=== PATIENT | female | born 1985 | race American Indian/Alaskan Native ===

== ENCOUNTER 2016-07-11 23:39 | Emergency (ER) | payer SELFPAY ==
[2016-07-12 00:12] LABS: Basophils % (Auto) 0.2 % (0.0-1.8); Eosinophils % (Auto) 1.2 % (0.0-4.3); Hematocrit 37.4 % (30.3-42.9); Hemoglobin 12.3 gm/dl (10.1-14.3); Mean Corpuscular HGB Conc 33 % (30-34); Mean Corpuscular Hemoglobin 29 pg (28-32); Mean Corpuscular Volume 89 fl (79-97); Platelet Count 200 K/mm3 (140-440); Red Blood Count 4.19 M/mm3 (3.65-5.03); Red Cell Distribution Width 13.3 % (13.2-15.2); White Blood Count 5.6 K/mm3 (4.5-11.0)
[2016-07-12 01:14] LABS: Anion Gap 19 mmol/L; Blood Urea Nitrogen 15 mg/dL (7-17); Calcium 8.6 mg/dL (8.4-10.2); Carbon Dioxide 24 mmol/L (22-30); Chloride 102.8 mmol/L (98-107); Glucose 94 mg/dL (65-100); Potassium 3.5 mmol/L (3.6-5.0); Sodium 142 mmol/L (137-145)
--- NOTE | 2016-07-12 08:47 | Emergency Department Report ---
HPI - General Chief Complaint: High BP Time Seen by Provider: 07/12/16 08:35 - HPI HPI: Chief complaint: Upper respiratory infection HPI: Patient is a 31-year-old female with a history of hypertension he's been out of her blood pressure medicines for 2 weeks. Patient is here today not because of her blood pressure but because she has been sick for the last week with a productive cough with yellow sputum. Patient states she's had fever for a couple of days and had some nausea and vomiting and lightheadedness early on. Patient denies any chest pain. Mode of arrival: [private car] Source: [Patient] Began: See above Duration: One week Context: See above Quality: Pain-free Severity: 0 out of 10 Improved with: Nothing Worsened with: Nothing Associated signs and symptoms: See above ED Past Medical Hx - Past Medical History Previous Medical History?: Yes Hx Hypertension: Yes (treated with HCTZ until found out she was ) Additional medical history: ectopic hx. - Surgical History Past Surgical History?: Yes Additional Surgical History: 2 csec. - Social History Smoking Status: Never Smoker Substance Use Type: None - Medications Home Medications: Home Medications Medication Instructions Recorded Confirmed Last Taken Type Azithromycin [Zithromax TAB] 500 mg PO QDAY #3 tablet 07/12/16 Unknown Rx Fluticasone [Flonase] 1 spray NS QDAY #1 bottle 07/12/16 Unknown Rx Hydrochlorothiazide [HCTZ] 12.5 mg PO QDAY #30 capsule 07/12/16 Unknown Rx Lisinopril [Zestril TAB] 20 mg PO QDAY #30 tablet 07/12/16 Unknown Rx hydrALAZINE [Apresoline TAB] 25 mg PO BID #60 tablet 07/12/16 Unknown Rx methylPREDNISolone [Medrol] 4 mg PO QAM #1 tab.ds.pk 07/12/16 Unknown Rx ED Review of Systems ROS: Stated complaint: FLU SX Other details as noted in HPI ROS Constitutional: No fever ENT: No uri symptoms Cardiovascular: No chest pain Respiratory: No sob GI: See HPI : No dysuria frequency or urgency, Skin: No rash Neuro: No focal weakness or numbness Psych: No depression Handy/lymph: No edema Physical Exam - Physical Exam Vital Signs: Vital Signs 07/11/16 07/11/16 07/12/16 23:45 23:49 05:00 Temperature 98.2 F 98.2 F Pulse Rate 81 81 81 Respiratory 18 18 18 Rate Blood Pressure 195/133 190/130 Blood Pressure 195/133 [Right] O2 Sat by Pulse 100 100 100 Oximetry 07/12/16 07/12/16 07/12/16 07:33 07:40 08:02 Temperature Pulse Rate 80 Respiratory 10 L 18 Rate Blood Pressure 182/107 182/107 Blood Pressure [Right] O2 Sat by Pulse 99 98 Oximetry 07/12/16 08:04 Temperature 98.7 F Pulse Rate Respiratory 18 Rate Blood Pressure Blood Pressure [Right] O2 Sat by Pulse Oximetry Physical Exam: GENERAL: The patient is an obese -[place] female no acute distress. HEENT: Normocephalic. Atraumatic. Extraocular motions are intact. Patient has moist mucous membranes. NECK: Supple. No meningitic signs are noted. There is no adenopathy noted. CHEST/LUNGS: Clear to auscultation. There is no respiratory distress noted. HEART/CARDIOVASCULAR: Regular. There is no tachycardia. There is no gallop rub or murmur. ABDOMEN: Abdomen is soft, nontender. Patient has normal bowel sounds. There is no abdominal distention. SKIN: There is no rash. There is no edema. There is no diaphoresis. NEURO: The patient is awake, alert, and oriented. The patient is cooperative. The patient has no focal neurologic deficits. The patient has normal speech. MUSCULOSKELETAL: There is no tenderness or deformity. There is no limitation range of motion. There is no evidence of acute injury. ED Course Vital Signs 07/11/16 07/11/16 07/12/16 23:45 23:49 05:00 Temperature 98.2 F 98.2 F Pulse Rate 81 81 81 Respiratory 18 18 18 Rate Blood Pressure 195/133 190/130 Blood Pressure 195/133 [Right] O2 Sat by Pulse 100 100 100 Oximetry 07/12/16 07/12/16 07/12/16 07:33 07:40 08:02 Temperature Pulse Rate 80 Respiratory 10 L 18 Rate Blood Pressure 182/107 182/107 Blood Pressure [Right] O2 Sat by Pulse 99 98 Oximetry 07/12/16 08:04 Temperature 98.7 F Pulse Rate Respiratory 18 Rate Blood Pressure Blood Pressure [Right] O2 Sat by Pulse Oximetry ED Medical Decision Making - Lab Data Result diagrams: 07/12/16 00:03 07/12/16 00:03 Critical care attestation.: If time is entered above; I have spent that time in minutes in the direct care of this critically ill patient, excluding procedure time. ED Disposition Clinical Impression: Bronchitis, Essential hypertension Disposition: DISCHARGED TO HOME OR SELFCARE Is pt being admited?: No Does the pt Need Aspirin: No Condition: Stable Instructions: Acute Bronchitis (ED), Hypertension (ED) Prescriptions: Azithromycin [Zithromax TAB] 500 mg PO QDAY #3 tablet Fluticasone [Flonase] 1 spray NS QDAY #1 bottle hydrALAZINE [Apresoline TAB] 25 mg PO BID #60 tablet Hydrochlorothiazide [HCTZ] 12.5 mg PO QDAY #30 capsule Lisinopril [Zestril TAB] 20 mg PO QDAY #30 tablet methylPREDNISolone [Medrol] 4 mg PO QAM #1 tab.ds.pk Referrals: PRIMARY CARE, [Primary Care Provider] - 7-10 days Forms: Work/School Release Form(ED) Time of Disposition: 08:43
[2016-07-12 09:23] VITALS: BP 154/91
== END 2016-07-12 09:23 | disposition home or self-care (01) ==
LOC: ED 23:39
DX: J40 Bronchitis, not specified as acute or chronic (principal); I10 Essential (primary) hypertension
CPT/HCPCS: 36415; 80048; 85025; 99283

== ENCOUNTER 2017-01-03 19:16 | Emergency (ER) | payer MEDICAID ==
[2017-01-03] MEDS ORDERED: CATAPRES PO ONE (20:14)
[2017-01-03 20:40] LABS: Basophils % (Auto) 0.4 % (0.0-1.8); Eosinophils % (Auto) 1.6 % (0.0-4.3); Hematocrit 38.1 % (30.3-42.9); Hemoglobin 12.4 gm/dl (10.1-14.3); Mean Corpuscular HGB Conc 32 % (30-34); Mean Corpuscular Hemoglobin 29 pg (28-32); Mean Corpuscular Volume 90 fl (79-97); Platelet Count 220 K/mm3 (140-440); Red Blood Count 4.23 M/mm3 (3.65-5.03); Red Cell Distribution Width 13.8 % (13.2-15.2); White Blood Count 4.9 K/mm3 (4.5-11.0)
[2017-01-03 20:51] LABS: Anion Gap 19 mmol/L; Blood Urea Nitrogen 10 mg/dL (7-17); Calcium 9.1 mg/dL (8.4-10.2); Carbon Dioxide 21 mmol/L (22-30); Chloride 103.5 mmol/L (98-107); Creatine Kinase 353 units/L (30-135); Glucose 108 mg/dL (65-100); Potassium 3.1 mmol/L (3.6-5.0); Sodium 140 mmol/L (137-145)
--- NOTE | 2017-01-03 21:48 | Cat Scan Report ---
FINAL REPORT EXAM: CT HEAD/BRAIN WO CON HISTORY: HEADACHE TECHNIQUE: CT was performed from the foramen magnum through the vertex in the axial plane without the use of intravenous contrast. PRIORS: 03/26/2015 FINDINGS: The almonte/white matter attenuation pattern is normal. There is no mass lesion or mass effect. There are no abnormal extra-axial fluid collections. There is no evidence of acute intracranial hemorrhage or infarct. The ventricles are of normal size and configuration. The skull and orbits are unremarkable. The visualized paranasal sinuses are clear. IMPRESSION: Normal CT of the head.
[2017-01-04] MEDS ORDERED: REGLAN IV ONE (01:07)
[2017-01-04] MEDS ORDERED: BENADRYL IV ONE (01:07)
[2017-01-04] MEDS ORDERED: NACL 0.9% 1000 ML 1,000 ML IV ONE (01:07)
[2017-01-04] MEDS ORDERED: TORADOL IV ONE (01:07)
[2017-01-04] MEDS ORDERED: K-DUR PO ONE (01:08)
--- NOTE | 2017-01-04 01:33 | Emergency Department Report ---
ED Headache HPI - General Chief Complaint: High BP Stated Complaint: HBP/COREAS/VOMITING Time Seen by Provider: 01/04/17 01:00 Source: patient Exam Limitations: no limitations - History of Present Illness Initial Comments: 31-year-old female with a past medical history hypertension and migraines presents to Hospital complaints of headache and elevated blood pressure since this morning. Headache is in the right side starting behind the eye, sharp, constant, and severe. No aggravating or alleviating factors reported. She has a history of migraines reports that this headache is similar. No reports of blurred vision or photophobia. Patient had lightheadedness and vomiting throughout the day. She knows her blood pressure was elevated at 200/118 at home. Her typical blood pressures in the 150s/ 80s. Patient has been compliant with her blood pressure medication which she has been taken 1 month. Allergies/Adverse Reactions: Allergies No Known Allergies Allergy (Unverified 03/03/13 22:09) Home Medications: Ambulatory Orders Butalb/Acetamin/Caff 50-325-40 [Fioricet] 1 tab PO Q6HR PRN #20 tab 01/04/17 HYDROcodone/APAP 5-325 [[place] 5/325] 1 each PO Q6HR PRN #20 tablet 01/04/17 Ondansetron [Zofran Odt] 4 mg PO Q8HR PRN #20 tab.rapdis 01/04/17 Potassium Chloride [K-Dur] 20 meq PO BID #6 tab 01/04/17 Valsartan/Hydrochlorothiazide [Valsartan-Hctz 160-12.5 mg Tab] 1 each PO DAILY 01/04/17 ED Review of Systems ROS: Stated complaint: HBP/COREAS/VOMITING Other details as noted in HPI Comment: All other systems reviewed and negative Other: Constitutional: No fevers chills Eyes: No eye pain visual changes ENT: No ear pain or throat pain Neck: Denies pain Respiratory: Denies cough wheezing shortness of breath Cardiovascular: Denies chest pain, palpitations, syncope GI: Denies abdominal pain, nausea, vomiting, diarrhea : Denies dysuria Musculoskeletal: Denies back pain, joint swelling Skin: Denies rash, lesions, erythema Neurologic: Per HPI Psychiatric: Denies suicidal ideation, hallucinations ED Past Medical Hx - Past Medical History Previous Medical History?: Yes Hx Hypertension: Yes (treated with HCTZ until found out she was ) Hx Congestive Heart Failure: No Hx Diabetes: No Hx Deep Vein Thrombosis: No Hx Renal Disease: No Hx Sickle Cell Disease: No Hx Headaches / Migraines: Yes (migraines) Hx Seizures: No Hx Asthma: No Hx COPD: No Additional medical history: ectopic hx. - Surgical History Past Surgical History?: Yes Additional Surgical History: 2 csec. - Social History Smoking Status: Never Smoker Substance Use Type: Alcohol - Medications Home Medications: Home Medications Medication Instructions Recorded Confirmed Last Taken Type Butalb/Acetamin/Caff 50-325-40 1 tab PO Q6HR PRN #20 tab 01/04/17 Unknown Rx [Fioricet] HYDROcodone/APAP 5-325 [[place] 1 each PO Q6HR PRN #20 tablet 01/04/17 Unknown Rx 5/325] Ondansetron [Zofran Odt] 4 mg PO Q8HR PRN #20 tab.rapdis 01/04/17 Unknown Rx Potassium Chloride [K-Dur] 20 meq PO BID #6 tab 01/04/17 Unknown Rx Valsartan/Hydrochlorothiazide 1 each PO DAILY 01/04/17 01/04/17 Unknown History [Valsartan-Hctz 160-12.5 mg Tab] ED Physical Exam - General Limitations: No Limitations - Other Other exam information: General: No limitations, patient is alert in no acute distress Head exam: Atraumatic, normocephalic Eyes exam: Normal appearance, pupils equal reactive to light, extraocular movements intact ENT: Moist mucous membrane, normal oropharynx Neck exam: Normal inspection, full range of motion, no meningismus nontender Respiratory exam: Clear to auscultation bilateral, no wheezes, rales, crackles Cardiovascular: Normal rate and rhythm, normal heart sounds Abdomen: Soft, nondistended, and nontender, with normal bowel sounds, no rebound, or guarding Extremity: Full range of motion normal inspection no deformity Back: Normal Inspection, full range of motion, no tenderness Neurologic: Alert, oriented x3, cranial nerves intact, no motor or sensory deficit Psychiatric: normal affect, normal mood Skin: Warm, dry, intact ED Course Vital Signs 01/03/17 01/03/17 01/03/17 20:01 20:18 22:18 Temperature 98.7 F Pulse Rate 87 72 Respiratory 20 Rate Blood Pressure 189/122 189/122 197/120 Blood Pressure [Left] O2 Sat by Pulse 100 96 Oximetry 01/03/17 01/04/17 01/04/17 23: 00:10 00:12 Temperature 98.1 F Pulse Rate 86 88 Respiratory 19 20 Rate Blood Pressure 178/115 154/93 Blood Pressure 154/93 [Left] O2 Sat by Pulse 96 98 Oximetry 01/04/17 01/04/17 01/04/17 00:30 00:31 01:00 Temperature Pulse Rate 84 79 Respiratory 20 20 12 Rate Blood Pressure 129/101 159/96 Blood Pressure [Left] O2 Sat by Pulse 99 98 100 Oximetry 01/04/17 01/04/17 01/04/17 01:30 01:32 02:00 Temperature Pulse Rate 95 H 80 Respiratory 17 16 21 Rate Blood Pressure 175/100 162/96 Blood Pressure [Left] O2 Sat by Pulse 97 97 Oximetry 01/04/17 02:30 Temperature Pulse Rate 65 Respiratory 17 Rate Blood Pressure 141/89 Blood Pressure [Left] O2 Sat by Pulse 98 Oximetry - Reevaluation(s) Reevaluation #1: 01/04/17 02:47 headache improved with normal saline, Reglan, Benadryl, and Toradol. By mouth potassium provided well patient tolerated by mouth ED Medical Decision Making - Lab Data Result diagrams: 01/03/17 20:20 01/03/17 20:20 Lab Results 01/03/17 01/03/17 01/03/17 Range/Units 20:20 20:20 20:20 WBC 4.9 (4.5-11.0) K/mm3 RBC 4.23 (3.65-5.03) M/mm3 Hgb 12.4 (10.1-14.3) gm/dl Hct 38.1 (30.3-42.9) % MCV 90 (79-97) fl MCH 29 (28-32) pg MCHC 32 (30-34) % RDW 13.8 (13.2-15.2) % Plt Count 220 (140-440) K/mm3 Lymph % (Auto) 27.5 (13.4-35.0) % [place] % (Auto) 8.7 H (0.0-7.3) % Eos % (Auto) 1.6 (0.0-4.3) % Baso % (Auto) 0.4 (0.0-1.8) % Lymph # 1.3 (1.2-5.4) K/mm3 [place] # 0.4 (0.0-0.8) K/mm3 Eos # 0.1 (0.0-0.4) K/mm3 Baso # 0.0 (0.0-0.1) K/mm3 Seg Neutrophils % 61.8 (40.0-70.0) % Seg Neutrophils # 3.0 (1.8-7.7) K/mm3 Sodium 140 (137-145) mmol/L Potassium 3.1 L (3.6-5.0) mmol/L Chloride 103.5 (98-107) mmol/L Carbon Dioxide 21 L (22-30) mmol/L Anion Gap 19 mmol/L BUN 10 (7-17) mg/dL Creatinine 0.8 (0.7-1.2) mg/dL Estimated GFR > 60 ml/min BUN/Creatinine Ratio 12.50 % Glucose 108 H (65-100) mg/dL Calcium 9.1 (8.4-10.2) mg/dL Magnesium (1.7-2.3) mg/dL Total Bilirubin (0.1-1.2) mg/dL Direct Bilirubin (0-0.2) mg/dL Indirect Bilirubin mg/dL AST (5-40) units/L ALT (7-56) units/L Alkaline Phosphatase (35-129) units/L Total Creatine Kinase 353 H (30-135) units/L Troponin T < 0.010 (0.00-0.029) ng/mL Total Protein (6.3-8.2) g/dL Albumin (3.9-5) g/dL Albumin/Globulin Ratio % Lipase (13-60) units/L HCG, Qual Negative (Negative) 01/04/17 01/04/17 Range/Units 01:05 01:05 WBC (4.5-11.0) K/mm3 RBC (3.65-5.03) M/mm3 Hgb (10.1-14.3) gm/dl Hct (30.3-42.9) % MCV (79-97) fl MCH (28-32) pg MCHC (30-34) % RDW (13.2-15.2) % Plt Count (140-440) K/mm3 Lymph % (Auto) (13.4-35.0) % [place] % (Auto) (0.0-7.3) % Eos % (Auto) (0.0-4.3) % Baso % (Auto) (0.0-1.8) % Lymph # (1.2-5.4) K/mm3 [place] # (0.0-0.8) K/mm3 Eos # (0.0-0.4) K/mm3 Baso # (0.0-0.1) K/mm3 Seg Neutrophils % (40.0-70.0) % Seg Neutrophils # (1.8-7.7) K/mm3 Sodium (137-145) mmol/L Potassium (3.6-5.0) mmol/L Chloride (98-107) mmol/L Carbon Dioxide (22-30) mmol/L Anion Gap mmol/L BUN (7-17) mg/dL Creatinine (0.7-1.2) mg/dL Estimated GFR ml/min BUN/Creatinine Ratio % Glucose (65-100) mg/dL Calcium (8.4-10.2) mg/dL Magnesium 2.10 (1.7-2.3) mg/dL Total Bilirubin 0.30 (0.1-1.2) mg/dL Direct Bilirubin < 0.2 (0-0.2) mg/dL Indirect Bilirubin 0.1 mg/dL AST 14 (5-40) units/L ALT 16 (7-56) units/L Alkaline Phosphatase 58 (35-129) units/L Total Creatine Kinase (30-135) units/L Troponin T (0.00-0.029) ng/mL Total Protein 7.5 (6.3-8.2) g/dL Albumin 4.3 (3.9-5) g/dL Albumin/Globulin Ratio 1.3 % Lipase 23 (13-60) units/L HCG, Qual (Negative) - EKG Data -: EKG Interpreted by Me (sinus rhythm rate 81 LVH prolonged QT) - EKG Data When compared to previous EKG there are: no significant change (compared to (QT longer today)) - Medical Decision Making Patient feels much better after ED treatment. We'll discharge home with migraine diagnosis. I suspect that elevated blood pressure could be due to acute pain. Patient will be instructed to continue to monitor her blood pressure and no medication adjustment recommended at this time - Differential Diagnosis migraine, hypertensive emergency, intracranial hemorrhage Critical Care Time: No Critical care attestation.: If time is entered above; I have spent that time in minutes in the direct care of this critically ill patient, excluding procedure time. ED Disposition Clinical Impression: Migraine headache, Uncontrolled hypertension, Hypokalemia, Vomiting Disposition: TO HOME OR SELFCARE Is pt being admited?: No Condition: Stable Instructions: Hypertension (ED), Migraine Headache (ED), Hypokalemia (ED) Additional Instructions: Take the medication as prescribed. Return if symptoms worsen. Continue to monitor your blood pressure Prescriptions: Butalb/Acetamin/Caff 50-325-40 [Fioricet] 1 tab PO Q6HR PRN #20 tab PRN Reason: Headache HYDROcodone/APAP 5-325 [[place] 5/325] 1 each PO Q6HR PRN #20 tablet PRN Reason: Pain Ondansetron [Zofran Odt] 4 mg PO Q8HR PRN #20 tab.rapdis PRN Reason: Nausea And Vomiting Potassium Chloride [K-Dur] 20 meq PO BID #6 tab Referrals: PRIMARY CARE, [Primary Care Provider] - 2-3 Days Time of Disposition: 03:14
[2017-01-04 01:53] LABS: Alanine Aminotransferase 16 units/L (7-56); Albumin 4.3 g/dL (3.9-5); Albumin/Globulin Ratio 1.3 %; Alkaline Phosphatase 58 units/L (35-129); Lipase 23 units/L (13-60); Total Protein 7.5 g/dL (6.3-8.2)
[2017-01-04 01:55] LABS: Bilirubin,Direct < 0.2 mg/dL (0-0.2); Bilirubin,Indirect 0.1 mg/dL
[2017-01-04 03:34] VITALS: BP 155/92
== END 2017-01-04 03:33 | disposition home or self-care (01) ==
LOC: ED 19:16
DX: G43.909 Migraine, unspecified, not intractable, without status migrainosus (principal); I10 Essential (primary) hypertension; E87.6 Hypokalemia; R11.10 Vomiting, unspecified
CPT/HCPCS: 36415; 70450; 80048; 80074; 82550; 83690; 83735; 84484; 84703; 85025; 93005; 93010; 96361; 96374; 96375; 99284; J1200; J1885; J2765; J7030

== ENCOUNTER 2018-03-12 07:20 | Day surgery (SDC) | payer MEDICAID ==
--- NOTE | 2018-03-12 07:30 | Short Stay Summary ---
Short Stay Documentation Date of service: 03/12/18 Narrative H&P: Pt is a 32yo BF EDC 08/24/18; EGA 16 3/ weeks presents for Cervical cerclage due to Incompetent cervix. - History Principal diagnosis: IUP @ 16 3/7 weeks; Incompetent cervix H&P: obtained from office Past Medical History: hypertension Past Surgical History: Social history: no significant social history, single - Allergies and Medications Current Medications: Allergies No Known Allergies Allergy (Unverified 03/03/13 22:09) Home Medications Medication Instructions Recorded Confirmed Last Taken Type Butalb/Acetamin/Caff 50-325-40 1 tab PO Q6HR PRN #20 tab 01/04/17 Unknown Rx [Fioricet] HYDROcodone/APAP 5-325 [[place] 1 each PO Q6HR PRN #20 tablet 01/04/17 Unknown Rx 5/325] Ondansetron [Zofran Odt] 4 mg PO Q8HR PRN #20 tab.rapdis 01/04/17 Unknown Rx Potassium Chloride [K-Dur] 20 meq PO BID #6 tab 01/04/17 Unknown Rx Valsartan/Hydrochlorothiazide 1 each PO DAILY 01/04/17 01/04/17 Unknown History [Valsartan-Hctz 160-12.5 mg Tab] Active Medications Citric Acid/Sodium Citrate (Bicitra) 30 ml PO ONCE ONE Stop: 03/12/18 07:29 Famotidine (Pepcid) 20 mg IV ONCE ONE Stop: 03/12/18 07:29 Cefazolin Sodium (Ancef/Sterile Water 2 Gm/20 Ml) 2 gm in 20 mls @ 80 mls/hr IV PREOP NR; Protocol Lactated Ringer's (Lactated Ringers) 1,000 mls @ 2,250 mls/hr IV PREOP MEREDITH Stop: 03/13/18 08:27 Oxytocin/Sodium Chloride (Pitocin/Ns 20 Unit/1000ml Drip) 20 units in 1,000 mls @ 0 mls/hr IV TITR MEREDITH Metoclopramide HCl (Reglan) 10 mg IV ONCE ONE Stop: 03/12/18 07:29 - Physical exam General appearance: no acute distress Integumentary: no rash HEENT: Atraumatic Lungs: Clear to auscultation Breasts: deferred Heart: Regular rate Gastrointestinal: normal Female Genitourinary: deferred Rectal Exam: deferred Extremities: no ischemia, No edema Neurological: Normal gait, Normal speech - Brief post op/procedure progress note Date of procedure: 03/12/18 Pre-op diagnosis: 1. IUP @ 16 3/7 weeks 2. Incompetent cervix Post-op diagnosis: same Procedure: Cervical cerclage Anesthesia: epidural Findings: A 16 week size uterus with cervix appears to be closed and thick. Surgeon: ONEAL LOPEZ Estimated blood loss: minimal Pathology: none Condition: stable - Hospital course Hospital course: Unremarkable except for elevated BP's - improved with IV Hydralazine and PO Labetolol. - Disposition Condition at discharge: Good Disposition: DC-01 TO HOME OR SELFCARE - Discharge Diagnoses (1) 16 weeks gestation of Status: Acute (2) Incompetent cervix Status: Chronic Short Stay Discharge Plan Activity: no restrictions Diet: regular Follow up with: ONEAL LOPEZ MD [Primary Care Provider] - 7 Days Prescriptions: Ampicillin [Polycillin] 500 mg PO Q6H #28 capsule HYDROcodone/APAP 5-325 [[place] 5-325 mg TAB] 1 each PO Q6HR PRN #30 tablet PRN Reason: Pain, Moderate (4-6)
[2018-03-12] MEDS: LACTATED RINGERS 1,000 ML IV SCH ×2 (08:00→08:56)
[2018-03-12] MEDS ORDERED: PITOCin/NS 20 UNIT/1000ML DRIP 20 UNITS/1,000 ML BAG IV SCH (08:00)
[2018-03-12] MEDS ORDERED: ANCEF/STERILE WATER 2 GM/20 ML 2 GM/20 ML SYRINGE IV NR (08:00)
[2018-03-12 08:20] LABS: Hemoglobin 10.6 gm/dl (10.1-14.3); Mean Corpuscular HGB Conc 33 % (30-34); Mean Corpuscular Hemoglobin 29 pg (28-32); Mean Corpuscular Volume 89 fl (79-97); Platelet Count 179 K/mm3 (140-440); Red Cell Distribution Width 14.1 % (13.2-15.2)
[2018-03-12 08:21] LABS: Basophils % (Auto) 0.5 % (0.0-1.8); Eosinophils # (Auto) 0.2 K/mm3 (0.0-0.4); Eosinophils % (Auto) 4.6 % (0.0-4.3); Lymphocytes # (Auto) 1.1 K/mm3 (1.2-5.4); Lymphocytes % (Auto) 22.2 % (13.4-35.0); Monocytes # (Auto) 0.6 K/mm3 (0.0-0.8); Monocytes % (Auto) 12.1 % (0.0-7.3)
[2018-03-12] MEDS ORDERED: PEPCID IV ONE (08:30)
[2018-03-12] MEDS ORDERED: BICITRA PO ONE (08:30)
[2018-03-12] MEDS ORDERED: REGLAN IV ONE (08:30)
--- NOTE | 2018-03-12 08:40 | Anesthesia Consultation ---
Anesthesia Consult and Med Hx Date of service: 03/12/18 - Airway Anesthetic Teeth Evaluation: Good ROM Head & Neck: Adequate Mental/Hyoid Distance: Adequate Mallampati Class: Class III Intubation Access Assessment: Possibly Difficult - Pre-Operative Health Status ASA Pre-Surgery Classification: ASA3 Proposed Anesthetic Plan: Spinal - Pulmonary Hx Asthma: No COPD: No Hx Pneumonia: No - Cardiovascular System Hx Hypertension: Yes (treated with HCTZ until found out she was ) - Central Nervous System Hx Seizures: No Hx Psychiatric Problems: No - Endocrine Hx Renal Disease: No Hx End Stage Renal Disease: No Hx Hypothyroidism: No Hx Hyperthyroidism: No - Hematic Hx Anemia: Yes Hx Sickle Cell Disease: No - Other Systems Hx Alcohol Use: No Hx Obesity: Yes (BMI 39.4)
--- NOTE | 2018-03-12 08:41 | Anesthesia Day of Surgery ---
Anesthesia Day of Surgery - Day of Surgery Patient Examined: Yes Patient H&P Reviewed: Yes Patient is NPO: Yes Beta Blockers: Yes
[2018-03-12] MEDS ORDERED: NORMODYNE IV ONE (09:30)
[2018-03-12] MEDS ORDERED: ANCEF/STERILE WATER 2 GM/20 ML IV ONE (13:50)
--- NOTE | 2018-03-12 14:23 | Operative Report ---
Operative Report Operative Report: Date of procedure: 03/12/2018 Pre-operative diagnosis: 1. Intrauterine at 16 and 3/7 weeks 2. Incompetent cervix Post-operative diagnosis: Same Procedure name(s): Cervical cerclage Surgeon: Jong Booth MD Certified Tower Climber: None Anesthesia: Epidural anesthesia by Dr. Dudley EBL: Minimal less than 10 mL Findings: A 16 week size uterus with the cervix appearing closed and thick Procedure: After the patient was correctly identified, she was prepped and draped in the usual sterile fashion and placed in dorsolithotomy position. The bladder was first emptied using a straight catheter, and the speculum was placed in the vaginal vault. The cervix was cleansed using Betadine solution, and the anterior lip of the cervix was grasped using ring forceps. The Mersilene suture was used to perform the cerclage starting at the 12:00 to 10 o' clock position, the 9:00 to 7 o'clock position, the 5:00 to the 3 o'clock position and the 2:00 and to the 12 o'clock position. The suture was tied at the 12 o'clock position. There was no evidence of rupture of membranes. At this point the procedure was considered complete. All instruments removed from the vagina. The patient tolerated the procedure well and was transported to recovery in stable condition.
[2018-03-12] MEDS ORDERED: NORCO 5/325 PO PRN (14:25)
[2018-03-12] MEDS ORDERED: ZOFRAN IV PRN (14:25)
[2018-03-12] MEDS ORDERED: COLACE PO PRN (14:25)
[2018-03-12] MEDS ORDERED: TYLENOL PO PRN (14:25)
[2018-03-12] MEDS ORDERED: LACTATED RINGERS 1,000 ML IV SCH (15:00)
[2018-03-12] MEDS ORDERED: NORMODYNE PO ONE (15:22)
[2018-03-12] MEDS ORDERED: AFRIN NS PRN (15:25)
[2018-03-12] MEDS ORDERED: APRESOLINE IV ONE (18:00)
[2018-03-12] MEDS ORDERED: AMPICILLIN/NS 1 GM/50 ML 1 GM/50 ML BAG IV SCH (18:27)
[2018-03-12 20:30] VITALS: BP 127/58
[2018-03-13] MEDS ORDERED: PRENATAL VITAMIN PO SCH (10:00)
== END 2018-03-12 23:07 | disposition home or self-care (01) ==
LOC: LDOR 07:20 → LD 07:20 → LDOR 23:07
PROVIDERS: ATTEND Obstetrics & Gynecology
DX: O34.32 Maternal care for cervical incompetence, second trimester (principal); Z3A.16 16 weeks gestation of pregnancy; I10 Essential (primary) hypertension; E66.9 Obesity, unspecified; Z68.39 Body mass index [BMI] 39.0-39.9, adult; Z98.891 History of uterine scar from previous surgery; Z86.2 Personal history of diseases of the blood and blood-forming organs and certain disorders involving the immune mechanism; Z83.3 Family history of diabetes mellitus; Z82.49 Family history of ischemic heart disease and other diseases of the circulatory system; Z86.73 Personal history of transient ischemic attack (TIA), and cerebral infarction without residual deficits; Z79.899 Other long term (current) drug therapy; Z79.82 Long term (current) use of aspirin
CPT/HCPCS: 36415; 59320; 82962; 85025; 86850; 86900; 86901; 96360; 96361; J0290; J0360; J0690; J2765; J7120

== ENCOUNTER 2018-05-30 08:34 | Inpatient (IN) | payer MEDICAID ==
[2018-05-30] MEDS ORDERED: LACTATED RINGERS 1,000 ML IV ONE (09:03)
[2018-05-30 09:58] LABS: Basophils % (Auto) 0.8 % (0.0-1.8); Eosinophils # (Auto) 0.1 K/mm3 (0.0-0.4); Eosinophils % (Auto) 1.3 % (0.0-4.3); Hematocrit 32.7 % (30.3-42.9); Hemoglobin 10.9 gm/dl (10.1-14.3); Lymphocytes % (Auto) 19.1 % (13.4-35.0); Mean Corpuscular HGB Conc 33 % (30-34); Mean Corpuscular Volume 91 fl (79-97); Monocytes # (Auto) 0.6 K/mm3 (0.0-0.8); Monocytes % (Auto) 11.7 % (0.0-7.3); Platelet Count 176 K/mm3 (140-440); Red Cell Distribution Width 14.2 % (13.2-15.2)
[2018-05-30] MEDS ORDERED: COLACE PO PRN (12:50)
--- NOTE | 2018-05-30 12:50 | History and Physical Report ---
History of Present Illness Date of examination: 05/30/18 Chief complaint: Vaginal bleeding History of present illness: Pt is a 33yo BF EDC 08/24/18; EGA 27 5/7 weeks presents to L&D complaining of vaginal bleeding. She passed a blood clot earlier, but now bleeding has decreased. She denies having sex or abdominal trauma. Ob u/s showed posterior placenta with no evidence of previa or abruption; [place] 16.8; Breech presentation. She has a Cervical cerclage in place. Past History Past Medical History: hypertension Social history: no significant social history, - Obstetrical History Expected Date of Delivery: 08/24/18 Actual Gestation: 27 Week(s) 6 Day(s) : 6 Medications and Allergies Allergies Allergy/AdvReac Type Severity Reaction Status Date / Time No Known Allergies Allergy Unverified 03/03/13 22:09 Home Medications Medication Instructions Recorded Confirmed Last Taken Type Aspirin [Aspirin EC] 81 mg PO QDAY 03/12/18 05/30/18 05/29/18 08:00 History Labetalol [Normodyne] 300 mg PO TID 03/12/18 05/30/18 05/29/18 19:00 History Pnv No.95/Ferrous Fum/Folic AC 1 tab PO QDAY 03/12/18 05/30/18 05/29/18 08:00 History [ Formula Tablet] Ampicillin [Polycillin] 500 mg PO TID 05/30/18 05/30/18 05/29/18 19:00 History Methyldopa 1 tab PO TID 05/30/18 05/30/18 05/29/18 19:00 History Progesterone, Micronized 1 cap PO HS 05/30/18 05/30/18 05/29/18 21:00 History [Progesterone] Review of Systems All systems: negative - Vital Signs Vital signs: Vital Signs Pulse BP 95 H 113/57 05/30/18 08:50 05/30/18 08:50 Temp Pulse Resp BP Pulse Ox 97.9 F 74 18 134/73 05/30/18 09:00 05/30/18 10:50 05/30/18 09:00 05/30/18 10:50 - Physical Exam Breasts: Positive: deferred Cardiovascular: Regular rate Lungs: Positive: Clear to auscultation Abdomen: Positive: normal appearance, soft Genitourinary (Female): Positive: normal external genitalia Vagina: Positive: other (scant blood on pad) Uterus: Positive: enlarged Extremities: Positive: normal - Obstetrical FHR: category 1 Uterine Contraction Monitor Mode: External Uterine Contraction Pattern: Absent Results Result Diagrams: 05/30/18 09:47 Abnormal lab results 05/30/18 Range/Units 09:47 RBC 3.60 L (3.65-5.03) M/mm3 [place] % (Auto) 11.7 H (0.0-7.3) % Lymph # 1.0 L (1.2-5.4) K/mm3 All other labs normal. Ultrasound: report reviewed ([place], Breech, [place] 16.8; Cervical length 4.9; Posterior placent with no evidence of abruption or previa) Assessment and Plan - Patient Problems (1) 27 weeks gestation of Onset Date: ~05/30/18 Current Visit: Yes Status: Acute Plan to address problem: A: IUP @ 27 5/7 weeks Vaginal bleeding - unknown etiology Chronic hypertension Cervical cerclage P: Admit to L&D for Observation and Ob u/s Obtain APA consultation Continue Labetolol/ Ald[place] Begin Betamethasone Observe for bleeding. (2) Vaginal bleeding in Onset Date: ~05/30/18 Current Visit: Yes Status: Acute (3) Hypertension Onset Date: ~05/30/18 Current Visit: No Status: Acute Qualifiers: Hypertension type: essential hypertension Qualified Code(s): I10 - Essential (primary) hypertension (4) Incompetent cervix Onset Date: ~05/30/18 Current Visit: No Status: Chronic
[2018-05-30] MEDS ORDERED: LACTATED RINGERS 1,000 ML IV SCH (13:00)
--- NOTE | 2018-05-30 14:33 | Consultation ---
History of Present Illness Consult date: 05/30/18 Requesting physician: JONG BOOTH Reason for consult: other (Vaginal bleeding with presence of clot) History of present illness: This a a 33yo AA female EDC 08/24/18; EGA 27 5/7 weeks presents to L&D complaining of vaginal bleeding and has been referred by Dr. Jong Booth for consultation. She that bleding has decreased to visible spotting on sanitary pad. She denies LOF, cramping/contractions. She denies having sex or abdominal trauma. Today's ultrasound showed posterior placenta with no evidence of previa or abruption; GUNNER 16.8 cm; Breech presentation. She has a Cervical cerclage in situ. Cervical length 4.9 cm. Past History Past Medical History: hypertension (CHTN), other (Hx labor and delivery (not on Petros), Incompetent cervix, obesity) Past Surgical History: section Social history: no significant social history - Obstetrical History : 6 Medications and Allergies Allergies Allergy/AdvReac Type Severity Reaction Status Date / Time No Known Allergies Allergy Unverified 03/03/13 22:09 Home Medications Medication Instructions Recorded Confirmed Last Taken Type Aspirin [Aspirin EC] 81 mg PO QDAY 03/12/18 05/30/18 05/29/18 08:00 History Labetalol [Normodyne] 300 mg PO TID 03/12/18 05/30/18 05/29/18 19:00 History Pnv No.95/Ferrous Fum/Folic AC 1 tab PO QDAY 03/12/18 05/30/18 05/29/18 08:00 History [ Formula Tablet] Ampicillin [Polycillin] 500 mg PO TID 05/30/18 05/30/18 05/29/18 19:00 History Methyldopa 1 tab PO TID 05/30/18 05/30/18 05/29/18 19:00 History Progesterone, Micronized 1 cap PO HS 05/30/18 05/30/18 05/29/18 21:00 History [Progesterone] Active Meds: Active Medications Acetaminophen (Tylenol) 650 mg PO Q4H PRN PRN Reason: Pain MILD(1-3)/Fever >100.5/COREAS Docusate Sodium (Colace) 100 mg PO Q12H PRN PRN Reason: Constipation Lactated Ringer's (Lactated Ringers) 1,000 mls @ 125 mls/hr IV DIRECT MEREDITH Multivitamins/Iron/Calcium ( Vitamin) 1 each PO QDAY MEREDITH Review of Systems Constitutional: other (denies headache, fever, chills) Eyes: deferred Ears, nose, mouth and throat: deferred Cardiovascular: other (denies chest pain, lightheadedness) Respiratory: other (denies shortness of breath) Gastrointestinal: other (dnieas abdominal pain, nausea, vomiting) Genitourinary: other (denies leakage of fluid) Neurological: other (denies headache, visual disturbances, epigastric pain) - Vital Signs Vital signs: Vital Signs Pulse BP 95 H 113/57 05/30/18 08:50 05/30/18 08:50 Temp Pulse Resp BP Pulse Ox 98.3 F 74 18 134/73 05/30/18 14:13 05/30/18 10:50 05/30/18 14:13 05/30/18 10:50 - Physical Exam Breasts: Positive: deferred Cardiovascular: Regular rate Lungs: Positive: Normal air movement Abdomen: Positive: normal appearance, other (gravid) Results Result Diagrams: 05/30/18 09:47 Abnormal lab results 05/30/18 Range/Units 09:47 RBC 3.60 L (3.65-5.03) M/mm3 Bent % (Auto) 11.7 H (0.0-7.3) % Lymph # 1.0 L (1.2-5.4) K/mm3 All other labs normal. Assessment and Plan Assessment 27 5/7 weeks, SIUP, KIRAN 08/24/18, Cervical length 4.9 cm with cerclage in situ No evidence of abrution or previa Appropriate fluid volume with GUNNER at 16.8 cm History of chronic hypertension History of Labor/Delivery History of incompetent cervix Presented to L+D with vaginal bleeding passed clot Recommendations: Betamethasone IM x2 doses for lung maturity Discharge with stability and no further vaginal bleeding Thank you for giving us the opportunity to participate in the care of this patient. Please contact our janna LOCKE MD for any questions or concerns. Thank you.
[2018-05-30] MEDS: CELESTONE SOLUSPAN IM SCH (15:00)
--- NOTE | 2018-05-30 18:16 | Ultrasound Report ---
FINAL REPORT EXAM: US OB >= 14 WEEKS FETUS HISTORY: vaginal bleeding, cerclage in place, ? leaking flu TECHNIQUE: Ultrasound evaluation of the gravid uterus PRIORS: None. FINDINGS: There is a single viable intrauterine with documented cardiac activity. Multiple ultrasoun d measurements are made to determine a composite gestational age. ratios are within normal limi ts. There is no evidence of placenta previa or abruption. The maternal cervix appears closed. The quanti ty of visualized amniotic fluid appears grossly normal. No sonographic abnormality in the visualized portion of the anatomy. Heart rate: 155 beats per minute position: Breech Placental position: Posterior, grade 1 Maternal cervix length: 4.9cm Amniotic fluid index: 16.8cm Estimated weight: 1204 g Growth percentile: 60 Ultrasound estimated gestational age: 27 weeks 5 days Ultrasound estimated delivery date: 08/24/2018 LMP estimated gestational age: 27 weeks 5 days LMP estimated delivery date: 08/24/2018 IMPRESSION: Single viable intrauterine with the above parameters Breech presentation Normal-appearing amniotic fluid volume
[2018-05-30] MEDS: NORMODYNE PO SCH (20:44)
[2018-05-30] MEDS ORDERED: ATIVAN IV ONE (22:15)
[2018-05-30] MEDS: ALDOMET PO SCH (22:53)
[2018-05-31] MEDS: NORMODYNE PO SCH ×3 (08:17→19:46)
--- NOTE | 2018-05-31 10:22 | Progress Note ---
Assessment and Plan - Patient Problems (1) 27 weeks gestation of Onset Date: ~05/30/18 Current Visit: Yes Status: Acute Plan to address problem: A: IUP @ 27 6/7 weeks Vaginal bleeding - unknown etiology Chronic hypertension Cervical cerclage P: Continue Observation Appreciate [facility] consultation Continue Labetolol/ Aldomet Complete 2nd dose of Betamethasone Observe for bleeding. (2) Vaginal bleeding in Onset Date: ~05/30/18 Current Visit: Yes Status: Acute (3) Hypertension Onset Date: ~05/30/18 Current Visit: No Status: Acute Qualifiers: Hypertension type: essential hypertension Qualified Code(s): I10 - Essential (primary) hypertension (4) Incompetent cervix Onset Date: ~05/30/18 Current Visit: No Status: Chronic Subjective - Subjective Date of service: 05/31/18 Principal diagnosis: IUP @ 27 6/7 weeks; Vaginal bleeding; Hypertension Interval history: Pt is a 33yo BF EDC 08/24/18; EGA 27 6/7 weeks presents to L&D complaining of vaginal bleeding. She passed a blood clot on admission, but now bleeding has resolved. She denies having sex or abdominal trauma. Ob u/s showed posterior placenta with no evidence of previa or abruption; GUNNER 16.8; Breech presentation. She has a Cervical cerclage in place. She has no complaints this morning. Patient reports: movement normal, no new complaints, no loss of fluid, no vaginal bleeding, no contractions Objective - Vital Signs Vital Signs: Vital Signs - 12hr 05/30/18 05/30/18 05/30/18 22:47 22:53 23:06 Temperature 98.1 F Pulse Rate 99 H 98 H Blood Pressure 132/69 110/53 05/30/18 05/31/18 05/31/18 23:47 00:47 01:49 Temperature Pulse Rate 88 100 H 118 H Blood Pressure 121/61 141/75 114/56 05/31/18 05/31/18 05/31/18 02:47 03:47 03:58 Temperature Pulse Rate 100 H 103 H 96 H Blood Pressure 120/59 114/49 131/67 05/31/18 05/31/18 05/31/18 04:47 05:47 06:48 Temperature Pulse Rate 106 H 100 H 104 H Blood Pressure 106/51 120/58 133/64 05/31/18 05/31/18 05/31/18 07:47 08:00 08:17 Temperature 98.2 F Pulse Rate 90 90 Blood Pressure 128/70 131/60 05/31/18 05/31/18 05/31/18 08:19 08:48 09:48 Temperature Pulse Rate 94 H 95 H 112 H Blood Pressure 131/60 131/63 128/59 - Exam Cardiovascular: Regular rate Abdomen: Present: normal appearance, soft Uterus: Present: normal FHR: category 1 Uterine Contraction Monitor Mode: External Uterine Contraction Pattern: Absent - Labs Labs: Abnormal Labs 05/30/18 09:47 RBC 3.60 L [place] % (Auto) 11.7 H Lymph # 1.0 L Laboratory Tests 05/30/18 09:47 WBC 5.1 RBC 3.60 L Hgb 10.9 Hct 32.7 MCV 91 MCH 30 MCHC 33 RDW 14.2 Plt Count 176 Lymph % (Auto) 19.1 [place] % (Auto) 11.7 H Eos % (Auto) 1.3 Baso % (Auto) 0.8 Lymph # 1.0 L [place] # 0.6 Eos # 0.1 Baso # 0.0 Seg Neutrophils % 67.1 Seg Neutrophils # 3.4 - Results US- obstetric: report reviewed
[2018-05-31] MEDS: ALDOMET PO SCH ×2 (10:31→22:15)
[2018-05-31] MEDS: PRENATAL VITAMIN PO SCH (10:37)
--- NOTE | 2018-05-31 12:19 | Progress Note ---
Assessment and Plan patient is 27 + weeks with vaginal bleeding and cerlcage in place, she has no active bleeding and stable cat1 tracing now, cervical length on report was >4 cm - the images for the US would not pull up but cervix reported at ~4 cm normal - no concern for abruption - patient has decreased bleeding now - cerclage in place - getting BMZ course - if the patient has no vaginal bleeding (being bright red and active), cat 1 tracing and no abdominal pain or contractions she can be considered for DC roscoe - her BP are stable, please ensure normal PIH labs and continue BP meds as ordered - patient should follow up with [facility] this week for CHTN and cerclage in place - continue the use of vaginal progesterone - BP monitor at home and LDA at home daily - please call myself with any concerns Dr Ervin [phone] Subjective - Subjective Date of service: 05/31/18 Principal diagnosis: IUP @ 27 6/7 weeks; Vaginal bleeding; Hypertension Interval history: patient is doing well this morning only with some old blood and nothing new, no bright red, no contractions, no LOF with good FM Patient reports: movement normal, no new complaints, no loss of fluid, no vaginal bleeding, no contractions Objective - Vital Signs Vital Signs: Vital Signs - 12hr 05/31/18 05/31/18 05/31/18 00:47 01:49 02:47 Temperature Pulse Rate 100 H 118 H 100 H Blood Pressure 141/75 114/56 120/59 05/31/18 05/31/18 05/31/18 03:47 03:58 04:47 Temperature Pulse Rate 103 H 96 H 106 H Blood Pressure 114/49 131/67 106/51 05/31/18 05/31/18 05/31/18 05:47 06:48 07:47 Temperature Pulse Rate 100 H 104 H 90 Blood Pressure 120/58 133/64 128/70 05/31/18 05/31/18 05/31/18 08:00 08:17 08:19 Temperature 98.2 F Pulse Rate 90 94 H Blood Pressure 131/60 131/60 05/31/18 05/31/18 05/31/18 08:48 09:48 10:31 Temperature Pulse Rate 95 H 112 H 110 H Blood Pressure 131/63 128/59 121/64 05/31/18 05/31/18 05/31/18 10:32 10:47 11:48 Temperature Pulse Rate 110 H 114 H 100 H Blood Pressure 121/64 122/67 149/59 - Exam Cardiovascular: Regular rate Lungs: Normal air movement Abdomen: Present: soft. Absent: distention, tenderness, guarding FHR: category 1 Uterine Contraction Pattern: Absent Uterine Tone Measurement Phase: Resting - Labs Labs: Abnormal Labs 05/30/18 09:47 RBC 3.60 L [place] % (Auto) 11.7 H Lymph # 1.0 L
[2018-05-31] MEDS: CELESTONE SOLUSPAN IM SCH (15:05)
[2018-05-31] MEDS: TYLENOL PO PRN (17:30)
[2018-05-31] MEDS ORDERED: AMBIEN PO PRN (22:22)
[2018-06-01] MEDS: TYLENOL PO PRN ×2 (01:46→06:48)
[2018-06-01] MEDS: NORMODYNE PO SCH (08:58)
[2018-06-01] MEDS ORDERED: FIORICET PO PRN (09:54)
[2018-06-01] MEDS ORDERED: PERCOCET 5/325 PO PRN (09:54)
[2018-06-01] MEDS: ALDOMET PO SCH (10:12)
[2018-06-01 10:15] VITALS: BP 120/56
[2018-06-01] MEDS: PRENATAL VITAMIN PO SCH (10:15)
--- NOTE | 2018-06-01 12:10 | Progress Note ---
Assessment and Plan - Patient Problems (1) 27 weeks gestation of Onset Date: ~05/30/18 Current Visit: Yes Status: Acute Plan to address problem: A: IUP @ 28 0/7 weeks Vaginal bleeding - unknown etiology - resolved Chronic hypertension Cervical cerclage P: May go home today Pelvic and bedrest (2) Vaginal bleeding in Onset Date: ~05/30/18 Current Visit: Yes Status: Resolved (3) Hypertension Onset Date: ~05/30/18 Current Visit: No Status: Chronic Qualifiers: Hypertension type: essential hypertension Qualified Code(s): I10 - E ssential (primary) hypertension (4) Incompetent cervix Onset Date: ~05/30/18 Current Visit: No Status: Chronic Subjective - Subjective Date of service: 06/01/18 Principal diagnosis: IUP @ 28 0/7 weeks; Vaginal bleeding; Hypertension Interval history: Pt is a 33yo BF EDC 08/24/18; EGA 28 0/7 weeks presented to L&D complaining of vaginal bleeding. She passed a blood clot on admission, but now bleeding has resolved. She denies having sex or abdominal trauma. Ob u/s showed posterior placenta with no evidence of previa or abruption; GUNNER 16.8; Breech presentation. She has a Cervical cerclage in place. She has no complaints this morning. Patient reports: movement normal, no new complaints, no loss of fluid, no vaginal bleeding, no contractions Objective - Vital Signs Vital Signs: Vital Signs - 12hr 06/01/18 06/01/18 06/01/18 00:31 04:35 04:36 Temperature 97.9 F 98.3 F Pulse Rate 113 H 99 H Respiratory 28 H 24 Rate Blood Pressure 124/72 126/68 06/01/18 06/01/18 06/01/18 06:48 08:57 08:58 Temperature Pulse Rate 107 H 107 H Respiratory 18 Rate Blood Pressure 133/70 133/70 06/01/18 06/01/18 06/01/18 09:00 10:12 10:13 Temperature 97.9 F Pulse Rate 118 H 118 H Respiratory 18 18 Rate Blood Pressure 120/56 120/56 - Exam Abdomen: Present: normal appearance, soft Uterus: Present: normal FHR: category 1 Uterine Contraction Monitor Mode: External Uterine Contraction Pattern: Absent - Labs Labs: Abnormal Labs 05/30/18 09:47 RBC 3.60 L Conway % (Auto) 11.7 H Lymph # 1.0 L Laboratory Results - last 24 hr 05/31/18 10:35 KB % Cells Negative
--- NOTE | 2018-06-01 12:13 | Discharge Summary ---
Providers - Providers Date of Admission: 05/30/18 13:10 Date of discharge: 06/01/18 Attending physician: ONEAL LOPEZ 05/30/18 12:50 Consult to Physician [CONS] Routine Comment: Consulting Provider: IGOR KATZ Physician Instructions: Reason For Exam: IUP @ 27 weeks; Bleeding Primary care physician: ONEAL LOPEZ Hospitalization Reason for admission: IUP - , vaginal bleeding, other (Chronic hypertension; Cervical cerclage) complications: none Discharge diagnosis: other (IUP @ 28 0/7 weeks; Vaginal bleeding - resolved; Chronic hypertension; Cerclage) Pertinent studies: Ob u/s - [place]ron, Breech, Posterior placenta with no evidence of placental abruption or previa, GUNNER 16.8 Hospital course: Pt is a 33yo BF EDC 08/24/18; EGA 28 0/7 weeks presented to L&D complaining of vaginal bleeding. She passed a blood clot on admission, but now bleeding has resolved. She denies having sex or abdominal trauma. Ob u/s showed posterior placenta with no evidence of previa or abruption; GUNNER 16.8; Breech presentation. She has a Cervical cerclage in place. She received Betamethasone and bleeding has resolved. KB stain was Negative. She was therefore discharged to home in stable condition. Instructed - No sex and bedrest. Condition at discharge: Good Disposition: DC-01 TO HOME OR SELFCARE - Discharge Diagnoses (1) 27 weeks gestation of Status: Resolved (2) Vaginal bleeding in Status: Resolved (3) Hypertension Status: Chronic Qualifiers: Hypertension type: essential hypertension Qualified Code(s): I10 - Essential (primary) hypertension (4) Incompetent cervix Status: Chronic Plan - Provider Discharge Summary Activity: routine, no sex for 6 weeks, no heavy lifting 4 weeks, no strenuous exercise Diet: routine Instructions: routine Additional instructions: [] Smoking cessation referral if applicable(refer to patient education folder for contact #) [] Refer to [facility] Booklet Call your doctor immediately for: * Fever > 100.5 * Heavy vaginal bleeding ( >1 pad per hour) * Severe persistent headache * Shortness of breath * Reddened, hot, painful area to leg or breast * Drainage or odor from incision. * Keep incision clean and dry at all times and follow doctor's instructions regarding bathing/showering - Follow up plan Follow up: ONEAL LOPEZ MD [Primary Care Provider] - 7 Days IGOR KATZ MD [Staff Physician] - 7 Days MARLEE HAN DO [Staff Physician] - 7 Days
== END 2018-06-01 13:17 | disposition home or self-care (01) | DRG 781 ==
LOC: TRG 08:34 → LD 13:10
PROVIDERS: ADMIT Obstetrics & Gynecology; ATTEND Obstetrics & Gynecology
DX: O34.32 Maternal care for cervical incompetence, second trimester (principal); O10.912 Unspecified pre-existing hypertension complicating pregnancy, second trimester; Z3A.27 27 weeks gestation of pregnancy; O32.1XX0 Maternal care for breech presentation, not applicable or unspecified; O99.212 Obesity complicating pregnancy, second trimester; O46.92 Antepartum hemorrhage, unspecified, second trimester
CPT/HCPCS: 36415; 59025; 76805; 85025; 85460; 96360; 96372; G0378; J0702; J2060; J7120

== ENCOUNTER 2018-06-04 21:00 | Outpatient (CLI) | payer MEDICAID ==
[2018-06-04 23:01] LABS: Hematocrit 29.8 % (30.3-42.9); Mean Corpuscular HGB Conc 34 % (30-34); Mean Corpuscular Volume 91 fl (79-97); Platelet Count 146 K/mm3 (140-440); Red Blood Count 3.28 M/mm3 (3.65-5.03); Red Cell Distribution Width 14.4 % (13.2-15.2)
[2018-06-04 23:10] LABS: Bilirubin,Urine NEG (Negative); Blood,Urine NEG (Negative); Color,Urine Yellow (Yellow); Protein,Urine <15 mg/dL mg/dL (Negative)
[2018-06-04 23:30] LABS: Alanine Aminotransferase 123 units/L (7-56)
[2018-06-05 00:48] VITALS: BP 114/56
== END 2018-06-05 01:32 | disposition home or self-care (01) ==
LOC: TRG 21:00
PROVIDERS: ATTEND Obstetrics & Gynecology
DX: O47.03 False labor before 37 completed weeks of gestation, third trimester (principal); O10.013 Pre-existing essential hypertension complicating pregnancy, third trimester; Z3A.28 28 weeks gestation of pregnancy
CPT/HCPCS: 36415; 59025; 81001; 82565; 83615; 84450; 84460; 84550; 85027

== ENCOUNTER 2018-06-22 22:14 | Outpatient (CLI) | payer MEDICAID ==
[2018-06-22] MEDS ORDERED: LACTATED RINGERS 1,000 ML IV ONE (22:17)
[2018-06-22 22:41] VITALS: BP 123/72
[2018-06-22 23:23] LABS: Amorphous Crystals,Urine Few; Bacteria,Urine 1+ /HPF (Negative); Bilirubin,Urine NEG (Negative); Blood,Urine SM (Negative); Color,Urine Yellow (Yellow); Mucus,Urine FEW /HPF; Protein,Urine <15 mg/dL mg/dL (Negative)
--- NOTE | 2018-06-23 00:19 | Ultrasound Report ---
FINAL REPORT EXAM: US OB BPP WO NON-STRESS HISTORY: well being COMPARISON: May 30, 2018. TECHNIQUE: Several real-time grayscale and color Doppler images were obtained. FINDINGS: Normal breathing movements, movements, posterior tone and qualitative amniotic flui d volume. heart rate 156 beats per minute. IMPRESSION: Biophysical profile score 8/8.
--- NOTE | 2018-06-23 00:22 | Ultrasound Report ---
FINAL REPORT EXAM: US OB LIMITED HISTORY: GUNNER COMPARISON: May 30, 2018. TECHNIQUE: Several real-time grayscale and color Doppler images were obtained. FINDINGS: Limited exam performed. Single live IUP. heart rate 156 beats per minute. presentation cephalic. Placenta locatio n posterior. No placenta previa or placental abruption demonstrated. Normal GUNNER 9.1 centimeters. IMPRESSION: presentation cephalic. Placenta location posterior. No placental abnormality demonstrated. Norm al GUNNER.
[2018-06-23] MEDS ORDERED: LACTATED RINGERS 1,000 ML IV SCH (00:28)
[2018-06-23] MEDS ORDERED: ROCEPHIN/NS 1 GM/50 ML 1 GM/50 ML BAG IV SCH (01:00)
--- NOTE | 2018-06-23 07:11 | Event Note ---
Date: 06/22/18 33 year old female presents to L&D triage at 31 weeks gestation to rule out labor. Patient states she has been having brief sharp intermittent abdominal pain for a few days. She denies LOF or VB. Pt. reports active movement. Patient sees [facility] and [facility]. States she has a cervical cerclage. Has a history of cervical incompetence with a previous . Patient is also taking progesterone vaginal suppositories. Patient is well appearing, alert, oriented, NAD. VSS. Abdomen soft, nontender. Active movement noted. No contractions palpated or noted per monitor. SSE performed: no pooling, no bleeding, thick vaginal discharge noted. Cervix closed on visual inspection. BPP 8/8. GUNNER 9 cm. Discussed with patient labor warning signs, daily movement counting. Advised pt. to follow up at [facility] this week. Advised pt. to avoid IC and prolonged standing.
== END 2018-06-23 03:05 | disposition home or self-care (01) ==
LOC: TRG 22:14
PROVIDERS: ATTEND Obstetrics & Gynecology
DX: O47.03 False labor before 37 completed weeks of gestation, third trimester (principal); Z3A.31 31 weeks gestation of pregnancy
CPT/HCPCS: 76815; 76819; 81001; 96361; 96365; J0696; J7120

== ENCOUNTER 2018-08-11 12:47 | Inpatient (IN) | payer MEDICAID ==
[2018-08-11 14:34] LABS: Hematocrit 29.6 % (30.3-42.9); Hemoglobin 9.7 gm/dl (10.1-14.3); Mean Corpuscular HGB Conc 33 % (30-34); Mean Corpuscular Volume 90 fl (79-97); Platelet Count 165 K/mm3 (140-440); Red Blood Count 3.29 M/mm3 (3.65-5.03); Red Cell Distribution Width 14.3 % (13.2-15.2)
[2018-08-11 14:55] LABS: Alanine Aminotransferase 68 units/L (7-56); Uric Acid 6.1 mg/dL (3.5-7.6)
[2018-08-11 16:11] LABS: Bacteria,Urine 1+ /HPF (Negative); Bilirubin,Urine NEG (Negative); Blood,Urine NEG (Negative); Color,Urine Yellow (Yellow); Mucus,Urine FEW /HPF
[2018-08-11] MEDS ORDERED: BENADRYL IV PRN (18:58)
[2018-08-11] MEDS ORDERED: PHENERGAN PR PRN (18:58)
[2018-08-11] MEDS ORDERED: NARCAN 0.4 MG/1 ML IV PRN ×2 (18:58→21:13)
[2018-08-11] MEDS ORDERED: ZOFRAN IV PRN (18:58)
[2018-08-11] MEDS ORDERED: PHENERGAN PO PRN (18:58)
[2018-08-11] MEDS ORDERED: SODIUM CHLORIDE FLUSH SYRINGE 10 ML IV NR ×2 (19:00→22:00)
--- NOTE | 2018-08-11 19:00 | Anesthesia Consultation ---
Anesthesia Consult and Med Hx - Airway Anesthetic Teeth Evaluation: Good ROM Head & Neck: Adequate Mental/Hyoid Distance: Adequate Mallampati Class: Class II Intubation Access Assessment: Probably Good - Pulmonary Exam CTA: Yes - Cardiac Exam Cardiac Exam: RRR - Pre-Operative Health Status ASA Pre-Surgery Classification: ASA2 Proposed Anesthetic Plan: Spinal - Pulmonary Hx Smoking: No Hx Asthma: No Hx Respiratory Symptoms: No SOB: No COPD: No Home Oxygen Therapy: No Hx Pneumonia: No - Cardiovascular System Hx Hypertension: Yes (treated with HCTZ until found out she was ) - Central Nervous System Hx Seizures: No Hx Psychiatric Problems: No - Endocrine Hx Renal Disease: No Hx End Stage Renal Disease: No Hx Hypothyroidism: No Hx Hyperthyroidism: No - Hematic Hx Anemia: No Hx Sickle Cell Disease: No - Other Systems Hx Alcohol Use: No Hx Obesity: Yes (BMI 39.4)
--- NOTE | 2018-08-11 19:00 | Anesthesia Day of Surgery ---
Anesthesia Day of Surgery - Day of Surgery Patient Examined: Yes Patient H&P Reviewed: Yes Patient is NPO: Yes Beta Blockers: No Cardiac Clearance: No Pulmonary Clearance: No Drew's Test: N/A
[2018-08-11] MEDS ORDERED: REGLAN IV ONE (19:08)
[2018-08-11] MEDS ORDERED: BICITRA PO ONE (19:08)
[2018-08-11] MEDS ORDERED: PEPCID IV ONE (19:08)
[2018-08-11] MEDS ORDERED: LACTATED RINGERS 1,000 ML ONE ×2 (19:12→20:14)
--- NOTE | 2018-08-11 19:14 | History and Physical Report ---
History of Present Illness Date of examination: 08/11/18 Date of admission: 08/11/18 18:09 Chief complaint: Repeat C Section History of present illness: Pt is a 33yo BF EDC 08/24/18; EGA 38 1/7 weeks presents from [facility] for delivery due to elevated BP's and complaints of headaches and blurred vision. She is currently taking Aldomet 500mg TID and Labetolol 300mg TID. She received care at [facility] since and co-managed by [facility] for Chroni c hypertension and Morbid Obesity. records are available and GBS is Negative. 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), section (x2) Social history: no significant social history, - Obstetrical History Expected Date of Delivery: 08/24/18 Actual Gestation: 38 Week(s) 3 Day(s) : 6 Medications and Allergies Allergies Allergy/AdvReac Type Severity Reaction Status Date / Time No Known Allergies Allergy Verified 08/11/18 13:14 Home Medications Medication Instructions Recorded Confirmed Last Taken Type Aspirin [Aspirin EC] 81 mg PO QDAY 03/12/18 08/13/18 08/11/18 History Labetalol [Normodyne] 300 mg PO TID 03/12/18 08/13/18 08/11/18 History Pnv No.95/Ferrous Fum/Folic AC 1 tab PO QDAY 03/12/18 08/13/18 08/11/18 History [ Formula Tablet] Methyldopa 1 tab PO TID 05/30/18 08/13/18 08/11/18 History Progesterone, Micronized 1 cap PO HS 05/30/18 08/13/18 06/03/18 History [Progesterone] Active Meds: Active Medications Citric Acid/Sodium Citrate (Bicitra) 30 ml PO ONCE ONE Stop: 08/11/18 19:09 Diphenhydramine HCl (Benadryl) 12.5 mg IV Q2H PRN PRN Reason: Itching Famotidine (Pepcid) 20 mg IV ONCE ONE Stop: 08/11/18 19:09 Cefazolin Sodium (Ancef/Sterile Water 2 Gm/20 Ml) 2 gm in 20 mls @ 80 mls/hr IV PREOP NR; Protocol Lactated Ringer's (Lactated Ringers) 1,000 mls @ 2,250 mls/hr IV PREOP MEREDITH Stop: 08/12/18 20:27 Oxytocin/Sodium Chloride (Pitocin/Ns 20 Unit/1000ml Drip) 20 units in 1,000 mls @ 0 mls/hr IV TITR MEREDITH Metoclopramide HCl (Reglan) 10 mg IV ONCE ONE Stop: 08/11/18 19:09 Naloxone HCl (Narcan 0.4 Mg/1 Ml) 0.2 mg IV Q2MIN PRN PRN Reason: Res Rate </= 8 or 02 SAT < 92% Ondansetron HCl (Zofran) 4 mg IV Q8H PRN PRN Reason: Nausea And Vomiting Promethazine HCl (Phenergan) 25 mg PO Q6H PRN PRN Reason: Nausea And Vomiting Promethazine HCl (Phenergan) 25 mg IA Q6H PRN PRN Reason: Nausea And Vomiting Sodium Chloride (Sodium Chloride Flush Syringe 10 Ml) 10 ml IV PRN NR Review of Systems All systems: negative - Vital Signs Vital signs: Vital Signs Pulse BP 99 H 121/73 08/11/18 13:34 08/11/18 13:34 Temp Pulse Resp BP Pulse Ox 98.4 F 86 20 126/68 08/11/18 13:40 08/11/18 18:18 08/11/18 13:40 08/11/18 18:18 - Physical Exam Breasts: Positive: deferred Cardiovascular: Regular rate Lungs: Positive: Clear to auscultation Abdomen: Positive: normal appearance Genitourinary (Female): Positive: normal external genitalia Vagina: Positive: normal moisture Uterus: Positive: enlarged Extremities: Positive: normal - Obstetrical FHR: category 1 Uterine Contraction Monitor Mode: External Uterine Contraction Pattern: Absent Results Result Diagrams: 08/12/18 09:23 08/11/18 14:15 Abnormal lab results 08/11/18 08/11/18 Range/Units 14:15 14:15 WBC 3.9 L (4.5-11.0) K/mm3 RBC 3.29 L (3.65-5.03) M/mm3 Hgb 9.7 L (10.1-14.3) gm/dl Hct 29.6 L (30.3-42.9) % AST 80 H (5-40) units/L ALT 68 H (7-56) units/L All other labs normal. Ultrasound: report reviewed Assessment and Plan - Patient Problems (1) 38 weeks gestation of Onset Date: 08/11/18 Current Visit: Yes Status: Resolved Plan to address problem: A: IUP @ 38 1/7 weeks Chronic hypertension with superimposed preeclampsia Incompetent cervix Morbid Obesity Previous C Section x 2 P: Admit to L&D for a Repeat C Section (2) Hypertension complicating in third trimester Onset Date: 08/11/18 Current Visit: Yes Status: Chronic (3) Pre-eclampsia affecting with pre-existing hypertension, delivered, current hospitalization Onset Date: 08/11/18 Current Visit: Yes Status: Resolved (4) Obesity (BMI 35.0-39.9 without comorbidity) Onset Date: 08/11/18 Current Visit: Yes Status: Chronic
--- NOTE | 2018-08-11 19:20 | Anesthesia Day of Surgery ---
Anesthesia Day of Surgery - Day of Surgery Patient Examined: Yes Patient H&P Reviewed: Yes Patient is NPO: Yes Beta Blockers: Yes (original stated no, incorrect, pt on BB) Cardiac Clearance: No Pulmonary Clearance: No Drew's Test: N/A
[2018-08-11] MEDS ORDERED: XYLOCAINE 2%/ EPI 1:200,000 INFILTRATI ONE (19:32)
[2018-08-11] MEDS ORDERED: SUBLIMAZE ONE (19:38)
[2018-08-11] MEDS ORDERED: ZOFRAN ONE (19:38)
[2018-08-11] MEDS ORDERED: LACTATED RINGERS 1,000 ML IV SCH (20:00)
[2018-08-11] MEDS ORDERED: PITOCin/NS 20 UNIT/1000ML DRIP 20 UNITS/1,000 ML BAG IV SCH ×2 (20:00→22:00)
[2018-08-11] MEDS ORDERED: ANCEF/STERILE WATER 2 GM/20 ML 2 GM/20 ML SYRINGE IV NR (20:00)
[2018-08-11] MEDS ORDERED: ROBINUL ONE (20:01)
[2018-08-11] MEDS ORDERED: NACL 0.9% IR ONE (20:02)
[2018-08-11] MEDS ORDERED: WATER FOR IRRIG STERILE IR ONE (20:02)
--- NOTE | 2018-08-11 21:05 | Post Anesthesia Evaluation ---
- Post Anesthesia Evaluation Patient Participated: Yes Airway Patent: Yes Stable Respiratory Function: Yes Temp > 96.8F: Yes Pain Manageable: Yes Adequeate Hydration: Yes Anesthesia Complications: No Block Receding Appropriately: Yes Patient on Ventilator: No
--- NOTE | 2018-08-11 21:06 | Operative Report ---
Operative Report Operative Report: Date of procedure: 08/11/2018 Pre-operative diagnosis: 1. Intrauterine at 38-1/7 weeks 2. Chroni c hypertension with superimposed preeclampsia 3. Previous 2 4. Morbid obesity 5. Incompetent cervix Post-operative diagnosis: Same with extensive lower uterine segment adhesions Procedure name(s): 1. Repeat low transverse section 2. Adhesiolysis Surgeon: Jong Booth MD Sales And Production Manager: None Anesthesia: Spinal anesthesia by Karl Booth CRNA EBL: 350 mL Findings: A 2891 g male infant Apgars 8 at 1 minute 8 at 5 minutes. Clear amniotic fluid. Normal uterus with uterine fibroids and lower uterine segment adhesions. Normal right fallopian tube and normal ovaries bilaterally. Absent left fallopian tube. Procedure: After the patient was prepped and draped in usual sterile fashion, and after satisfactory level of epidural anesthesia was obtained, the skin knife was used to make a transverse skin incision through the previous skin scar. The incision was excised down to layer of the fascia, which was nicked in the midline and extended laterally using the Bovie cautery. The rectus muscles were dissected off the rectus fascia both superiorly and inferiorly. The rectus bellies in the midline, and the peritoneum was entered under direct visualization. Extensive lower uterine segment adhesions were taken down using both sharp and blunt dissection. The peritoneal incision was extended superiorly and inferiorly. A bladder flap was created and the bladder blade was then placed. The uterus was scored in a curvilinear linear fashion, entered in the midline revealing clear amniotic fluid. The 's head was delivered onto the surgical field with aid of a vacuum, and the oropharynx and nasopharynx were bulb suctioned. The rest of the 's body was delivered, cord was doubly clamped and cut and the was handed to the waiting respiratory team. Cord blood was then obtained. The placenta was manually removed from the uterus, and the uterus removed from its normal anatomical position. After gentle uterine lavage, the incision was inspected and found to be without extensions. It was then closed in 2 layers using 0 Vicryl suture in a running interlocking fashion, the second layer imbricating the first. After good hemostasis was achieved, copious amounts or irrigation was performed, and the gutters were suctioned free of blood and blood clots. The Tisseel sealant was sprayed across the uterine incision. The uterus was then returned to its normal anatomical position, and after excellent hemostasis assured, the peritoneum was re-approximated using 3-0 Vicryl suture in a running interlocking fashion, and then the rectus muscles were re-approximated using 3-0 Vicryl suture in a [id number] configuration. The fascia was then re-approximated using 0 Vicryl suture in running interlocking fashion. The subcutaneous layer was made hemostatic using Bovie cautery, the Tisseel sealant was sprayed across the fascial incision and the skin edges re-approximated using 4-0 Vicryl suture in a sub-cuticular fashion. Patient tolerated the procedure well was transported to recovery in stable condition.
[2018-08-11] MEDS ORDERED: TYLENOL PO PRN (21:13)
[2018-08-11] MEDS ORDERED: TUCKS PAD TP PRN (21:13)
[2018-08-11] MEDS ORDERED: MILK OF MAGNESIA PO PRN (21:13)
[2018-08-11] MEDS ORDERED: LANSINOH TP PRN (21:13)
[2018-08-11] MEDS ORDERED: SENOKOT PO PRN (21:13)
[2018-08-11] MEDS ORDERED: NORCO 5/325 PO PRN (21:13)
[2018-08-11] MEDS ORDERED: MYLICON PO PRN (21:13)
[2018-08-11] MEDS ORDERED: APRESOLINE IV PRN (21:22)
[2018-08-11] MEDS: TORADOL IV PRN (21:56)
[2018-08-11] MEDS ORDERED: ALDOMET PO SCH (22:00)
[2018-08-11] MEDS ORDERED: D5LR 1,000 ML IV SCH (22:00)
[2018-08-11] MEDS: NORMODYNE PO SCH ×2 (22:03)
[2018-08-11] MEDS: ALDOMET PO SCH (23:07)
[2018-08-12] MEDS: PERCOCET 5/325 PO PRN ×2 (00:32→20:15)
[2018-08-12] MEDS ORDERED: ANCEF/NS 1 GM/50 ML 1 GM/50 ML BAG IV SCH (04:00)
[2018-08-12] MEDS: TORADOL IV PRN ×2 (05:45→12:12)
[2018-08-12] MEDS ORDERED: BOOSTRIX IM ONE (06:00)
[2018-08-12] MEDS ORDERED: M-M-R II VACCINE SUB-Q ONE (06:00)
[2018-08-12 09:53] LABS: Hematocrit 26.5 % (30.3-42.9); Hemoglobin 8.8 gm/dl (10.1-14.3)
[2018-08-12] MEDS: ALDOMET PO SCH ×2 (10:02→22:36)
[2018-08-12] MEDS: NORMODYNE PO SCH ×3 (10:04→22:37)
[2018-08-12] MEDS: FEOSOL PO SCH (10:05)
[2018-08-12] MEDS: PRENATAL VITAMIN PO SCH (10:06)
[2018-08-12 10:09] LABS: Alanine Aminotransferase 56 units/L (7-56)
--- NOTE | 2018-08-12 16:20 | Progress Note ---
Assessment and Plan - Patient Problems (1) 38 weeks gestation of Onset Date: 08/11/18 Current Visit: Yes Status: Resolved (2) Hypertension complicating in third trimester Onset Date: 08/11/18 Current Visit: Yes Status: Chronic (3) Pre-eclampsia affecting with pre-existing hypertension, delivered, current hospitalization Onset Date: 08/11/18 Current Visit: Yes Status: Resolved (4) Obesity (BMI 35.0-39.9 without comorbidity) Onset Date: 08/11/18 Current Visit: Yes Status: Chronic (5) Status post Onset Date: 08/12/18 Current Visit: Yes Status: Resolved Plan to address problem: A: s/p C Section - POD #1 Doing well Asymptomatic anemia - stable Preeclampsia - resolved. P: Continue RPOC Continue with Aldomet 500mg TID and Labetolol 300mg TID Anticipate discharge in 24-48hrs Subjective - Subjective Date of service: 08/12/18 Principal diagnosis: s/p Repeat C Section - POD #1 Interval history: Pt is feeling well without complaints. Bleeding has improved. She is tolerating a reg diet without nausea or vomiting. + Flatus. Patient reports: appetite normal, voiding normally, pain well controlled, flatus, ambulating normally, no dizzy ambulation, no nauseated : doing well, nursing well, bottle feeding Objective - Vital Signs Latest vital signs: Vital Signs Temp Pulse Resp BP BP Pulse Ox 08/12/18 12:54 98.2 F 96 H 24 106/68 94 08/12/18 10:04 120 H 120/74 08/12/18 10:02 120 H 08/12/18 08:29 98.7 F 102 H 20 121/75 95 08/12/18 05:52 120/67 08/12/18 05:49 111/64 08/12/18 04:04 97.7 F 90 16 128/72 95 08/11/18 23:07 92 H 149/77 08/11/18 22:35 97.6 F 16 149/77 08/11/18 22:05 97.7 F 75 13 120/67 100 08/11/18 22:03 144/86 08/11/18 21:50 71 15 144/86 100 08/11/18 21:35 89 15 133/46 100 03/25/19 21:20 80 13 147/88 100 08/11/18 21:15 67 19 147/76 100 08/11/18 21:10 87 16 147/79 100 08/11/18 21:05 97.9 F 90 15 142/58 100 08/11/18 18:18 86 126/68 08/11/18 17:21 81 140/77 Intake and Output 08/12/18 08/12/18 08/12/18 06:59 14:59 22:59 Intake Total 300 Output Total 700 Balance -400 Intake: Intake, Free Water 300 Output: Urine 700 Indwelling Catheter 700 Other: Total, Output Amount 700 # Voids Indwelling Catheter 600 - Exam Breasts: Present: deferred Abdomen: Present: normal appearance, soft Uterus: Present: normal, firm, fundal height below umbilicus Extremities: Present: normal Incision: Present: normal, dry, intact, dressed - Labs Labs: Abnormal lab results 08/12/18 08/12/18 Range/Units 09:23 09:23 Hgb 8.8 L (10.1-14.3) gm/dl Hct 26.5 L (30.3-42.9) % AST 66 H (5-40) units/L Laboratory Tests 08/11/18 08/11/18 08/11/18 14:15 14:15 14:15 WBC 3.9 L RBC 3.29 L Hgb 9.7 L Hct 29.6 L MCV 90 MCH 30 MCHC 33 RDW 14.3 Plt Count 165 Creatinine 0.9 Estimated GFR > 60 Uric Acid 6.1 AST 80 H ALT 68 H Lactate Dehydrogenase 126 Urine Color Urine Turbidity Urine pH Ur Specific [place] Urine Protein Urine Glucose (UA) Urine Ketones Urine Blood Urine Nitrite Urine Bilirubin Urine Urobilinogen Ur Leukocyte Esterase Urine WBC (Auto) Urine RBC (Auto) U Epithel Cells (Auto) Urine Bacteria (Auto) Urine Mucus Hep Bs Antigen HIV 1&2 Antibody Rapid HIV P24 Antigen Blood Type O POSITIVE Antibody Screen Negative 08/11/18 08/11/18 08/11/18 15:20 19:40 19:40 WBC RBC Hgb Hct MCV MCH MCHC RDW Plt Count Creatinine Estimated GFR Uric Acid AST ALT Lactate Dehydrogenase Urine Color Yellow Urine Turbidity Clear Urine pH 5.0 Ur Specific [place] 1.025 Urine Protein 30 mg/dl Urine Glucose (UA) Neg Urine Ketones Tr Urine Blood Neg Urine Nitrite Neg Urine Bilirubin Neg Urine Urobilinogen 2.0 Ur Leukocyte Esterase Neg Urine WBC (Auto) 1.0 Urine RBC (Auto) 1.0 U Epithel Cells (Auto) 11.0 Urine Bacteria (Auto) 1+ Urine Mucus Few Hep Bs Antigen Non-reactive HIV 1&2 Antibody Rapid Non react HIV P24 Antigen Non react Blood Type Antibody Screen 08/12/18 08/12/18 09:23 09:23 WBC RBC Hgb 8.8 L Hct 26.5 L MCV MCH MCHC RDW Plt Count Creatinine Estimated GFR Uric Acid AST 66 H ALT 56 Lactate Dehydrogenase Urine Color Urine Turbidity Urine pH Ur Specific [place] Urine Protein Urine Glucose (UA) Urine Ketones Urine Blood Urine Nitrite Urine Bilirubin Urine Urobilinogen Ur Leukocyte Esterase Urine WBC (Auto) Urine RBC (Auto) U Epithel Cells (Auto) Urine Bacteria (Auto) Urine Mucus Hep Bs Antigen HIV 1&2 Antibody Rapid HIV P24 Antigen Blood Type Antibody Screen
[2018-08-13] MEDS: ALDOMET PO SCH ×3 (06:10→21:20)
[2018-08-13] MEDS: NORMODYNE PO SCH ×6 (06:11→21:20)
[2018-08-13 07:36] LABS: Alanine Aminotransferase 46 units/L (7-56)
[2018-08-13] MEDS: PERCOCET 5/325 PO PRN ×2 (08:16→21:19)
--- NOTE | 2018-08-13 08:56 | Progress Note ---
Assessment and Plan - Patient Problems (1) 38 weeks gestation of Onset Date: 08/11/18 Current Visit: Yes Status: Resolved (2) Hypertension complicating in third trimester Onset Date: 08/11/18 Current Visit: Yes Status: Chronic (3) Pre-eclampsia affecting with pre-existing hypertension, delivered, current hospitalization Onset Date: 08/11/18 Current Visit: Yes Status: Resolved (4) Obesity (BMI 35.0-39.9 without comorbidity) Onset Date: 08/11/18 Current Visit: Yes Status: Chronic (5) Status post Onset Date: 08/12/18 Current Visit: Yes Status: Resolved Plan to address problem: A: s/p C Section - POD #2 Doing well Asymptomatic anemia - stable Preeclampsia - resolved. P: May go home tomorrow Continue with Aldomet 500mg TID and Labetolol 300mg TID BP check in the office in 1 week Subjective - Subjective Date of service: 08/13/18 Principal diagnosis: s/p Repeat C Section - POD #2 Interval history: Pt is feeling well without complaints. She is tolerating a reg diet without nausea or vomiting, ambulating and voiding without difficulty. Patient reports: appetite normal, voiding normally, pain well controlled, flatus, ambulating normally, no dizzy ambulation, no nauseated Simpson: doing well, nursing well, bottle feeding Objective - Vital Signs Latest vital signs: Vital Signs Temp Pulse Resp BP BP Pulse Ox 08/13/18 07:06 98.9 F 98 H 16 121/69 98 08/13/18 06:11 100 H 135/78 08/13/18 06:10 100 H 135/78 08/13/18 05:56 98.5 F 100 H 20 135/78 95 08/13/18 01:57 98.5 F 94 H 20 115/75 95 08/12/18 22:37 101 H 135/81 08/12/18 22:36 101 H 135/81 08/12/18 21:52 99.0 F 99 H 20 137/84 98 08/12/18 16:18 98.2 F 99 H 20 130/73 95 08/12/18 12:54 98.2 F 96 H 24 106/68 94 08/12/18 10:04 120 H 120/74 08/12/18 10:02 120 H Intake and Output 08/12/18 08/13/18 08/13/18 22:59 06:59 14:59 Intake Total 360 360 Balance 360 360 Intake: Oral 360 Intake, Free Water 360 Other: Total, Intake Amount 360 # Voids Void 400 - Exam Abdomen: Present: normal appearance, soft Uterus: Present: normal, firm, fundal height below umbilicus Extremities: Present: normal Incision: Present: normal, dry, intact - Labs Labs: Abnormal lab results 08/12/18 08/12/18 08/13/18 Range/Units 09:23 09:23 07:04 Hgb 8.8 L (10.1-14.3) gm/dl Hct 26.5 L (30.3-42.9) % AST 66 H 52 H (5-40) units/L
[2018-08-13] MEDS: PRENATAL VITAMIN PO SCH (10:15)
[2018-08-13] MEDS: FEOSOL PO SCH (10:15)
--- NOTE | 2018-08-13 10:19 | Discharge Summary ---
Providers - Providers Date of Admission: 08/11/18 18:09 Date of discharge: 08/14/18 Attending physician: ONEAL LOPEZ Primary care physician: ONEAL LOPEZ Hospitalization Reason for admission: section (Previous C Section x 2), IUP at term, other (Chronic hypertension with superimposed preeclampsia; Morbid obesity) Delivery: Procedure: section, repeat low transverse Episiotomy: none Laceration: none Incision: normal, dry, intact Other procedures: none complications: none Discharge diagnosis: IUP at term delivered (s/p Repeat C Section) baby: male Hospital course: Pt is a 33yo BF EDC 08/24/18; EGA 38 05/26 weeks who presented from [facility] for delivery due to elevated BP's and complaints of headaches and blurred vision. She was taking Aldomet 500mg TID and Labetolol 300mg TID. She received care at [facility] since and co-managed by [facility] for Chronic hype rtension and Morbid Obesity. She underwent an uncomplicated Repeat C Section and tolerated the procedure well. By POD #2 she was tolerating a reg diet without nausea or vomiting, ambulating and voiding without difficulty, and BP's well controlled. She will therefore be discharged to home on POD #3 in stable condition. She will follow up in the office in 1 week for BP check. Condition at discharge: Good Disposition: DC-01 TO HOME OR SELFCARE - Discharge Diagnoses (1) 38 weeks gestation of Status: Resolved (2) Hypertension complicating in third trimester Status: Chronic (3) Pre-eclampsia affecting with pre-existing hypertension, delivered, current hospitalization Status: Resolved (4) Obesity (BMI 35.0-39.9 without comorbidity) Status: Chronic Plan - Discharge Medications Prescriptions: Methyldopa [Aldomet] 500 mg PO Q8HR #90 tablet Ferrous Sulfate [Feosol 325 MG tab] 325 mg PO BID #60 tablet Ibuprofen [Motrin 800 MG tab] 800 mg PO Q6H PRN #30 tablet PRN Reason: Pain, Mild (1-3) Labetalol [Normodyne TAB] 300 mg PO Q8HR #90 tablet oxyCODONE /ACETAMINOPHEN [Percocet 5/325 mg] 1 tab PO Q6H PRN #30 tablet PRN Reason: Pain, Moderate (4-6) Vit-Fe Fumar-FA [ Vitamin] 1 each PO QDAY #30 tablet - Provider Discharge Summary Activity: routine, no sex for 6 weeks, no heavy lifting 4 weeks, no strenuous exercise Diet: routine Instructions: routine Additional instructions: [] Smoking cessation referral if applicable(refer to patient education folder for contact #) [] Refer to [facility]'s [facility] Booklet Call your doctor immediately for: * Fever > 100.5 * Heavy vaginal bleeding ( >1 pad per hour) * Severe persistent headache * Shortness of breath * Reddened, hot, painful area to leg or breast * Drainage or odor from incision. * Keep incision clean and dry at all times and follow doctor's instructions regarding bathing/showering Follow up in office in 1 week for BP check - Follow up plan Follow up: ONEAL LOPEZ MD [Primary Care Provider] - 7 Days
[2018-08-14] MEDS: ALDOMET PO SCH ×3 (05:44→21:37)
[2018-08-14] MEDS: NORMODYNE PO SCH ×6 (05:44→21:36)
[2018-08-14] MEDS: IBUPROFEN PO PRN ×2 (05:48→13:32)
[2018-08-14] MEDS: PERCOCET 5/325 PO PRN (10:05)
[2018-08-14] MEDS: FEOSOL PO SCH (10:05)
[2018-08-14] MEDS: PRENATAL VITAMIN PO SCH (10:05)
[2018-08-15] MEDS: ALDOMET PO SCH (05:59)
[2018-08-15] MEDS: NORMODYNE PO SCH ×2 (06:00→06:01)
[2018-08-15] MEDS: PERCOCET 5/325 PO PRN (06:06)
[2018-08-15] MEDS: FEOSOL PO SCH (09:50)
[2018-08-15] MEDS: PRENATAL VITAMIN PO SCH (09:50)
[2018-08-15 09:54] VITALS: BP 144/76
== END 2018-08-15 12:00 | disposition home or self-care (01) | DRG 765 ==
LOC: TRG 12:47 → LD 18:09 → OB 22:56
PROVIDERS: ADMIT Obstetrics & Gynecology; ATTEND Obstetrics & Gynecology
PROC: 10D00Z1 Extraction of Products of Conception, Low, Open Approach (ICD-10-PCS; principal; 2018-08-11)
PROC: 0UN90ZZ Release Uterus, Open Approach (ICD-10-PCS; 2018-08-11)
PROC: 3E0234Z Introduction of Serum, Toxoid and Vaccine into Muscle, Percutaneous Approach (ICD-10-PCS; 2018-08-12)
DX: O34.211 Maternal care for low transverse scar from previous cesarean delivery (principal); O34.33 Maternal care for cervical incompetence, third trimester; O11.4 Pre-existing hypertension with pre-eclampsia, complicating childbirth; O99.214 Obesity complicating childbirth; E66.01 Morbid (severe) obesity due to excess calories; O99.62 Diseases of the digestive system complicating childbirth; K66.0 Peritoneal adhesions (postprocedural) (postinfection); O99.02 Anemia complicating childbirth; Z3A.38 38 weeks gestation of pregnancy; Z71.3 Dietary counseling and surveillance; Z37.0 Single live birth; Z79.82 Long term (current) use of aspirin; Z79.899 Other long term (current) drug therapy; Z23 Encounter for immunization
CPT/HCPCS: 36415; 81001; 82565; 83615; 84450; 84460; 84550; 85014; 85018; 85027; 86706; 86850; 86900; 86901; 87806; G0378; C9250; J0690; J1885; J2405; J2590; J2765; J3010; J7120; J7121

== ENCOUNTER 2019-04-17 23:12 | Emergency (ER) | payer SELFPAY ==
[2019-04-17] MEDS ORDERED: ASPIRIN 325 MG TAB PO ONE (23:44)
[2019-04-17] MEDS ORDERED: ASPIRIN 325 MG TAB ONE (23:48)
--- NOTE | 2019-04-18 00:08 | XRay Report ---
CHEST 1 VIEW INDICATION / CLINICAL INFORMATION: Chest Pain. COMPARISON: None available. FINDINGS: SUPPORT DEVICES: None. HEART / MEDIASTINUM: No significant abnormality. LUNGS / PLEURA: No significant pulmonary or pleural abnormality. No pneumothorax. ADDITIONAL FINDINGS: No significant additional findings. IMPRESSION: 1. No acute findings. Signer Name: Jus Norton MD Signed: 04/18/2019 12:03 AM Workstation Name: [id number]
[2019-04-18 00:26] LABS: Basophils % (Auto) 0.6 % (0.0-1.8); Eosinophils # (Auto) 0.3 K/mm3 (0.0-0.4); Eosinophils % (Auto) 5.5 % (0.0-4.3); Hematocrit 31.5 % (30.3-42.9); Hemoglobin 10.2 gm/dl (10.1-14.3); Lymphocytes % (Auto) 41.7 % (13.4-35.0); Mean Corpuscular HGB Conc 33 % (30-34); Mean Corpuscular Volume 87 fl (79-97); Monocytes # (Auto) 0.4 K/mm3 (0.0-0.8); Monocytes % (Auto) 8.2 % (0.0-7.3); Platelet Count 207 K/mm3 (140-440); Red Blood Count 3.63 M/mm3 (3.65-5.03); Red Cell Distribution Width 14.5 % (13.2-15.2)
[2019-04-18 00:45] LABS: BUN/Creatinine Ratio 17; Blood Urea Nitrogen 20 mg/dL (7-17); Calcium 9.3 mg/dL (8.4-10.2); Hemolysis Index 22
[2019-04-18] MEDS ORDERED: LISINOPRIL 20 MG TAB PO ONE ×2 (01:22→03:10)
--- NOTE | 2019-04-18 01:33 | Emergency Department Report ---
ED General Adult HPI - General Chief complaint: Chest Pain Stated complaint: HIGH BP CHEST PAIN BACK PAIN SOB Time Seen by Provider: 04/18/19 01:13 Source: patient Mode of arrival: Ambulatory Limitations: No Limitations - History of Present Illness Initial comments: CC: "My blood pressure is up." Mrs. Carlson is a 33 yo female with hx of HTN who presents with elevated blood pressure reading at home. SBP 220 mg HG at home. Her PCP has asked her to taper down Labetalol dose from TID to once a day before beginning Procardia and Lisinopril on Saturday. She has typical frontal dull headache. She explains, "I know when my blood pressure is up." She had transient chest pain which now resolved. She has had chronic lower back pain worse with movement and position change. Back pain has been presents for neville past 8 months since in July. Has had previous headaches which are similar. Denies fever, photophobia, neck pain or vomiting. -: Gradual, days(s) (4) Location: head, chest, back Severity scale (0 -10): 5 Quality: dull Consistency: now resolved Improves with: medication (blood pressure control) Worsens with: none Associated Symptoms: chest pain, headaches, other (back pain) Treatments Prior to Arrival: none - Related Data Home Medications Medication Instructions Recorded Confirmed Last Taken Aspirin [Aspirin EC] 81 mg PO QDAY 03/12/18 08/13/18 08/11/18 Pnv No.95/Ferrous Fum/Folic AC 1 tab PO QDAY 03/12/18 08/13/18 08/11/18 [ Formula Tablet] labetaloL [Normodyne] 300 mg PO TID 03/12/18 08/13/18 08/11/18 Methyldopa 1 tab PO TID 05/30/18 08/13/18 08/11/18 Progesterone, Micronized 1 cap PO HS 05/30/18 08/13/18 06/03/18 [Progesterone] Previous Rx's Medication Instructions Recorded Last Taken Type Ferrous Sulfate [Feosol 325 MG tab] 325 mg PO BID #60 tablet 08/13/18 Unknown Rx Ibuprofen [Motrin 800 MG tab] 800 mg PO Q6H PRN #30 tablet 08/13/18 Unknown Rx Methyldopa [Aldomet] 500 mg PO Q8HR #90 tablet 08/13/18 Unknown Rx Vit-Fe Fumar-FA [ 1 each PO QDAY #30 tablet 08/13/18 Unknown Rx Vitamin] labetaloL [Labetalol 200mg TAB] 300 mg PO Q8HR #90 tablet 08/13/18 Unknown Rx oxyCODONE /ACETAMINOPHEN [Percocet 1 tab PO Q6H PRN #30 tablet 08/13/18 Unknown Rx 5/325 mg] Allergies Allergy/AdvReac Type Severity Reaction Status Date / Time No Known Allergies Allergy Verified 08/11/18 13:14 ED Review of Systems ROS: Stated complaint: HIGH BP CHEST PAIN BACK PAIN SOB Other details as noted in HPI Comment: All other systems reviewed and negative Constitutional: denies: fever, malaise Respiratory: denies: shortness of breath Cardiovascular: chest pain Gastrointestinal: denies: abdominal pain, nausea, vomiting Neurological: headache ED Past Medical Hx - Past Medical History Previous Medical History?: Yes Hx Hypertension: Yes (treated with HCTZ until found out she was ) Hx Congestive Heart Failure: No Hx Diabetes: No Hx Deep Vein Thrombosis: No Hx Renal Disease: No Hx Sickle Cell Disease: No Hx Headaches / Migraines: Yes (migraines) Hx Seizures: No Hx Asthma: No Hx COPD: No Hx HIV: No Additional medical history: ectopic hx. - Surgical History Past Surgical History?: Yes Additional Surgical History: 2 csec. - Social History Smoking Status: Never Smoker - Medications Home Medications: Home Medications Medication Instructions Recorded Confirmed Last Taken Type Aspirin [Aspirin EC] 81 mg PO QDAY 03/12/18 08/13/18 08/11/18 History Pnv No.95/Ferrous Fum/Folic AC 1 tab PO QDAY 03/12/18 08/13/18 08/11/18 History [ Formula Tablet] labetaloL [Normodyne] 300 mg PO TID 03/12/18 08/13/18 08/11/18 History Methyldopa 1 tab PO TID 05/30/18 08/13/18 08/11/18 History Progesterone, Micronized 1 cap PO HS 05/30/18 08/13/18 06/03/18 History [Progesterone] Ferrous Sulfate [Feosol 325 MG tab] 325 mg PO BID #60 tablet 08/13/18 Unknown Rx Ibuprofen [Motrin 800 MG tab] 800 mg PO Q6H PRN #30 tablet 08/13/18 Unknown Rx Methyldopa [Aldomet] 500 mg PO Q8HR #90 tablet 08/13/18 Unknown Rx Vit-Fe Fumar-FA [ 1 each PO QDAY #30 tablet 08/13/18 Unknown Rx Vitamin] labetaloL [Labetalol 200mg TAB] 300 mg PO Q8HR #90 tablet 08/13/18 Unknown Rx oxyCODONE /ACETAMINOPHEN [Percocet 1 tab PO Q6H PRN #30 tablet 08/13/18 Unknown Rx 5/325 mg] ED Physical Exam - General Limitations: No Limitations General appearance: alert, in no apparent distress, other (appears well, calm, comfortable) - Head Head exam: Present: atraumatic, normocephalic - Eye Eye exam: Present: normal appearance - ENT ENT exam: Present: mucous membranes moist - Neck Neck exam: Present: normal inspection, full ROM. Absent: tenderness, meningismus - Respiratory Respiratory exam: Present: normal lung sounds bilaterally. Absent: respiratory distress, wheezes, rales, rhonchi - Cardiovascular Cardiovascular Exam: Present: regular rate, normal rhythm, normal heart sounds. Absent: systolic murmur, diastolic murmur, rubs, gallop - GI/Abdominal GI/Abdominal exam: Present: soft, normal bowel sounds. Absent: distended, tenderness, guarding, rebound - Extremities Exam Extremities exam: Present: normal inspection - Back Exam Back exam: Present: normal inspection - Neurological Exam Neurological exam: Present: alert, oriented X3, normal gait - Psychiatric Psychiatric exam: Present: normal affect, normal mood - Skin Skin exam: Present: warm, dry, intact, normal color. Absent: rash ED Course Vital Signs 04/17/19 04/18/19 23:28 01:08 Temperature 98.5 F 98.2 F Pulse Rate 76 67 Respiratory 16 16 Rate Blood Pressure 214/121 Blood Pressure 185/104 [Left] O2 Sat by Pulse 99 100 Oximetry ED Medical Decision Making - Lab Data Result diagrams: 04/18/19 00:00 04/18/19 00:00 Laboratory Results - last 24 hr 04/18/19 04/18/19 00:00 00:00 WBC 4.7 RBC 3.63 L Hgb 10.2 Hct 31.5 MCV 87 MCH 28 MCHC 33 RDW 14.5 Plt Count 207 Lymph % (Auto) 41.7 H Wake % (Auto) 8.2 H Eos % (Auto) 5.5 H Baso % (Auto) 0.6 Lymph # 2.0 Wake # 0.4 Eos # 0.3 Baso # 0.0 Seg Neutrophils % 44.0 Seg Neutrophils # 2.1 Sodium 142 Potassium 3.4 L Chloride 106.0 Carbon Dioxide 21 L Anion Gap 18 BUN 20 H Creatinine 1.2 Estimated GFR > 60 BUN/Creatinine Ratio 17 Glucose 114 H Calcium 9.3 Troponin T < 0.010 - EKG Data EKG shows normal: sinus rhythm, axis, intervals, QRS complexes, ST-T waves Rate: normal - EKG Data Interpretation: no acute changes, normal EKG 04/18/19 01:29 EKG obtained 2319 Normal study rate 65 bpm NSR nl rate nl axis nl intervals no ST-T signs of ischemia no ST elevationinsert EKG - Radiology Data Radiology results: report reviewed Chest radiograph read by radiologist: No acute findings - Medical Decision Making 1. Hypertensive urgency due to change in medication regimen. I recommended beginning lisinopril tomorrow since her labetalol dosage frequency has markedly decreased according to her PCPs instructions. Repeat blood pressure 180 09/18/2003 without treatment. She was given 1 dose lisinopril in the emergency department prior to discharge. 2. Headache recurrent typical for patient's previous history of migraine headache I suspect tension headache. I do not suspect intracranial hemorrhage or dangerous headache without red flags such as fever, sudden onset, vomiting, neurological deficit, neck stiffness 3. Chest pain: Atypical for ACS. Troponin EKG negative. PERC Negative for pulmonary embolism. She is currently chest pain-free. Possible chest wall pain. Vital Signs - 24 hr 04/17/19 04/18/19 23:28 01:08 Temperature 98.5 F 98.2 F Pulse Rate 76 67 Respiratory 16 16 Rate Blood Pressure 214/121 Blood Pressure 185/104 [Left] O2 Sat by Pulse 99 100 Oximetry Critical care attestation.: If time is entered above; I have spent that time in minutes in the direct care of this critically ill patient, excluding procedure time. ED Disposition Clinical Impression: Hypertensive urgency, Recurrent headache, Chest pain Disposition: - TO HOME OR SELFCARE Is pt being admited?: No Does the pt Need Aspirin: No Condition: Stable Instructions: Chest Pain (ED), Hypertension (ED) Referrals: ULISES MCCOY MD [Primary Care Provider] - 3-5 Days
[2019-04-18] MEDS ORDERED: IBUPROFEN 800 MG TAB PO ONE (02:48)
[2019-04-18] MEDS ORDERED: IBUPROFEN 800 MG TAB ONE (02:48)
[2019-04-18 04:47] VITALS: BP 176/94
== END 2019-04-18 04:49 | disposition home or self-care (01) ==
LOC: ED 23:12
DX: I16.0 Hypertensive urgency (principal); R07.89 Other chest pain
CPT/HCPCS: 36415; 71045; 80048; 84484; 85025; 93005; 93010